=== PATIENT | female | born 1960 | race Caucasian/White ===

== ENCOUNTER 2019-01-16 13:25 | Emergency (ER) | payer OTHER ==
[2019-01-16] MEDS ORDERED: KETOROLAC 30 MG/ML 1 ML VIAL IVP STA (14:43)
[2019-01-16] MEDS ORDERED: MORPHINE SULFATE 4 MG/ML SYRINGE IV STA (14:43)
[2019-01-16] MEDS ORDERED: SODIUM CHLORIDE 0.9% 1,000 ML IV STA (14:43)
[2019-01-16] MEDS ORDERED: ONDANSETRON 4 MG/2 ML VIAL IVP STA (14:43)
[2019-01-16 15:15] LABS: Basophils % (A) 0 %; Eosinophils # (A) 0.1 k/uL (0-0.7); Eosinophils % (A) 1 %; HCT 49.4 % (34.0-46.0); HGB 15.1 gm/dL (11.4-16.0); Hypochromasia Slight; Lymphocytes # (A) 0.9 k/uL (1.0-4.8); Lymphocytes % (A) 7 %; MCH 30.3 pg (25.0-35.0); MCHC 30.6 g/dL (31.0-37.0); MCV 98.9 fL (80.0-100.0); Mean Platelet Volume 8.2; Monocytes # (A) 0.3 k/uL (0-1.0); Monocytes % (A) 2 %; Neutrophils # (A) 11.9 k/uL (1.3-7.7); Neutrophils % (A) 90 %; Platelet Count 169 k/uL (150-450); RDW 13.5 % (11.5-15.5); WBC 13.2 k/uL (3.8-10.6)
--- NOTE | 2019-01-16 15:18 | XR ---
EXAMINATION TYPE: XR KUB DATE OF EXAM: 01/16/2019 3:13 PM CLINICAL HISTORY: Left flank pain TECHNIQUE: Single upright image of the abdomen is obtained. COMPARISON: None. FINDINGS: Scattered gas is seen in nondilated small bowel loops. Gaseous distention of the cecum is n oted. Overall posterior bowel gas. Cholecystectomy clips are seen. The liver appears elongated. No pn eumoperitoneum. No suspicious calcification identified. The lung bases are clear and the osseous stru ctures are intact. IMPRESSION: Gaseous distention of the cecum is likely incidental in this patient with left lower quad rant pain. Overall nonobstructive bowel gas pattern although slight posterior bowel gas.
--- NOTE | 2019-01-16 15:31 | ED ---
General Adult HPI - General Chief complaint: Abdominal Pain Stated complaint: Possible Kidney stones Time Seen by Provider: 01/16/19 14:30 Source: patient, RN notes reviewed Mode of arrival: ambulatory Limitations: no limitations - History of Present Illness Initial comments: Patient 58-year-old female significant past mental history for kidney stones, presented to the emergency room today with chief complaint of left-sided flank pain that started this morning. Patient does admit to constant pain that is sharp at times. Patient does not increased urinary frequency with some pressure. She states the symptoms are consistent with kidney stones that she's had in the past. She denies any complaints or symptoms. Patient denies any recent fever, chills, shortness of breath, chest pain, numbness or tingling, headaches or visual changes, or any other complaints. - Related Data Home Medications Medication Instructions Recorded Confirmed Hydrochlorothiazide 12.5 mg PO DAILY 01/16/19 01/16/19 Lisinopril [Zestril] 40 mg PO DAILY 01/16/19 01/16/19 Rosuvastatin [Crestor] 10 mg PO DAILY 01/16/19 01/16/19 Previous Rx's Medication Instructions Recorded Hydrocodone/Acetaminophen [[place] 1 each PO Q6HR PRN #12 tab 01/16/19 5-325] Ibuprofen [Motrin] 800 mg PO Q6HR #30 tab 01/16/19 Ondansetron Odt [Zofran ODT] 4 mg PO Q8HR PRN #20 tab 01/16/19 Tamsulosin [Flomax] 0.4 mg PO DAILY #10 cap 01/16/19 Allergies Allergy/AdvReac Type Severity Reaction Status Date / Time Penicillins Allergy Rash/Hives Verified 01/16/19 15:57 Review of Systems ROS Statement: Those systems with pertinent positive or pertinent negative responses have been documented in the HPI. ROS Other: All systems not noted in ROS Statement are negative. Past Medical History Past Medical History: Hyperlipidemia, Hypertension History of Any Multi-Drug Resistant Organisms: None Reported Past Surgical History: Section, Cholecystectomy Past Psychological History: No Psychological Hx Reported Smoking Status: Never smoker Past Alcohol Use History: None Reported Past Drug Use History: None Reported General Exam - General Exam Comments Initial Comments: General: The patient is awake and alert, in no distress, and does not appear acutely ill. Eye: There is normal conjunctiva bilaterally. No signs of icterus. Ears, nose, mouth and throat: There are moist mucous membranes and no oral lesions. Neck: The neck is supple, there is no tenderness or JVD. Cardiovascular: There is a regular rate and rhythm. No murmur, rub or gallop is appreciated. Respiratory: Lungs are clear to auscultation, respirations are non-labored, breath sounds are equal. No wheezes, stridor, rales, or rhonchi. Gastrointestinal: Having soft on palpation. Patient does have mild tenderness left flank. No rebound, guarding Musculoskeletal: Normal ROM, no tenderness. Strength 5/5. Sensation intact. Neurological: A&O x 3. CN II-XII intact, There are no obvious motor or sensory deficits. Coordination appears grossly intact. Speech is normal. Skin: Skin is warm and dry and no rashes or lesions are noted. Psychiatric: Cooperative, appropriate mood & affect, normal judgment. Limitations: no limitations Course Vital Signs 01/16/19 13:36 Temperature 98.1 F Pulse Rate 81 Respiratory 20 Rate Blood Pressure 195/95 O2 Sat by Pulse 96 Oximetry Medical Decision Making - Medical Decision Making Patient reexamined at this time shows no signs of distress. She does admit feeling much better after pain medication of morphine, Toradol here in emergency room. Patient does admit that pain left flank has resolved. She states is consistent with kidney stones that she's had in the past. Patient's urinalysis does show hematuria. Patient did have 13,000 white count but does admit to an episode of vomiting prior to coming here return. Patient has no fever. Abdomen soft nontender. She feels couple at this time. Options of CT were discussed with patient that she has declined. She'll be treated for kidney stone short course of [place]. An opiate start talking form was completed and filled out. Patient is advised to follow-up through her urologist over the next 2 days returning here to emergency room if any symptoms increase or worsen. Will be given prescription for Zofran, ibuprofen, Flomax. - Lab Data Result diagrams: 01/16/19 15:05 01/16/19 15:05 Lab Results 01/16/19 01/16/19 01/16/19 Range/Units 15:05 15:05 15:05 WBC 13.2 H (3.8-10.6) k/uL RBC 5.00 (3.80-5.40) m/uL Hgb 15.1 (11.4-16.0) gm/dL Hct 49.4 H (34.0-46.0) % MCV 98.9 (80.0-100.0) fL MCH 30.3 (25.0-35.0) pg MCHC 30.6 L (31.0-37.0) g/dL RDW 13.5 (11.5-15.5) % Plt Count 169 (150-450) k/uL Neutrophils % 90 % Lymphocytes % 7 % Monocytes % 2 % Eosinophils % 1 % Basophils % 0 % Neutrophils # 11.9 H (1.3-7.7) k/uL Lymphocytes # 0.9 L (1.0-4.8) k/uL Monocytes # 0.3 (0-1.0) k/uL Eosinophils # 0.1 (0-0.7) k/uL Basophils # 0.0 (0-0.2) k/uL Hypochromasia Slight Sodium 141 (137-145) mmol/L Potassium 4.4 (3.5-5.1) mmol/L Chloride 108 H (98-107) mmol/L Carbon Dioxide 27 (22-30) mmol/L Anion Gap 6 mmol/L BUN 17 (7-17) mg/dL Creatinine 0.99 (0.52-1.04) mg/dL Est GFR (CKD-EPI)AfAm 73 (>60 ml/min/1.73 sqM) Est GFR (CKD-EPI)NonAf 63 (>60 ml/min/1.73 sqM) Glucose 158 H (74-99) mg/dL Calcium 10.2 (8.4-10.2) mg/dL Total Bilirubin 0.7 (0.2-1.3) mg/dL AST 62 H (14-36) U/L ALT 40 (9-52) U/L Alkaline Phosphatase 116 (38-126) U/L Total Protein 7.4 (6.3-8.2) g/dL Albumin 4.6 (3.5-5.0) g/dL Amylase 54 (30-110) U/L Lipase 177 (23-300) U/L Urine Color Light Yellow Urine Appearance Clear (Clear) Urine pH 6.0 (5.0-8.0) Ur Specific [place] 1.019 (1.001-1.035) Urine Protein Negative (Negative) Urine Glucose (UA) Negative (Negative) Urine Ketones Negative (Negative) Urine Blood Moderate H (Negative) Urine Nitrite Negative (Negative) Urine Bilirubin Negative (Negative) Urine Urobilinogen <2.0 (<2.0) mg/dL Ur Leukocyte Esterase Negative (Negative) Urine RBC 160 H (0-5) /hpf Urine WBC 6 H (0-5) /hpf Ur Squamous Epith Cells 1 (0-4) /hpf Urine Bacteria Rare H (None) /hpf Hyaline Casts 1 (0-2) /lpf Urine Mucus Rare H (None) /hpf Disposition Clinical Impression: Kidney stone Disposition: HOME SELF-CARE Condition: Good Instructions (If sedation given, give patient instructions): Kidney Stones (ED) Additional Instructions: Please use medication as discussed. Please follow-up with urologist/family doctor in the next 2 days of symptoms have not improved. Please return to emergency room if the symptoms increase or worsen or for any other concerns. Prescriptions: Tamsulosin [Flomax] 0.4 mg PO DAILY #10 cap Ibuprofen [Motrin] 800 mg PO Q6HR #30 tab Hydrocodone/Acetaminophen [[place] 5-325] 1 each PO Q6HR PRN #12 tab PRN Reason: Pain Ondansetron Odt [Zofran ODT] 4 mg PO Q8HR PRN #20 tab PRN Reason: Nausea Is patient prescribed a controlled substance at d/c from ED?: Yes When asked, does pt state using other controlled substances?: No If prescribed controlled substance>3 days was MAPS reviewed?: Prescribed <3 Days Referrals: Edilia Da Silva MD [REFERRING] - 1-2 days Bryson Reynoso MD [STAFF PHYSICIAN] - 1-2 days Time of Disposition: 16:03
[2019-01-16 15:33] LABS: Albumin 4.6 g/dL (3.5-5.0); Calcium 10.2 mg/dL (8.4-10.2); Potassium 4.4 mmol/L (3.5-5.1); Total Bilirubin 0.7 mg/dL (0.2-1.3); Total Protein 7.4 g/dL (6.3-8.2)
[2019-01-16 15:35] LABS: Appearance,Urine Clear (Clear); Bacteria,Urine Rare /hpf; Bilirubin,Urine Negative (Negative); Blood,Urine Moderate (Negative); Color,Urine Light Yellow; Glucose,Urine (UA) Negative (Negative); Hyaline Casts,Urine 1 /lpf (0-2); Ketones,Urine Negative (Negative); Leukocyte Esterase,Urine Negative (Negative); Mucus,Urine Rare /hpf; Nitrite,Urine Negative (Negative); Protein,Urine Negative (Negative); RBC,Urine 160 /hpf (0-5); Specific Gravity,Urine 1.019 (1.001-1.035); Squamous Epithelial Cell,Urine 1 /hpf (0-4); Urobilinogen,Urine <2.0 mg/dL (<2.0)
--- NOTE | 2019-01-16 15:39 | ED ---
General Adult HPI - General Chief complaint: Abdominal Pain Stated complaint: Possible Kidney stones Time Seen by Provider: 01/16/19 14:30 Source: patient Mode of arrival: ambulatory Limitations: no limitations - Related Data Allergies Allergy/AdvReac Type Severity Reaction Status Date / Time Penicillins Allergy Rash/Hives Verified 01/16/19 13:39 Review of Systems ROS Statement: Those systems with pertinent positive or pertinent negative responses have been documented in the HPI. ROS Other: All systems not noted in ROS Statement are negative. Past Medical History Past Medical History: Hyperlipidemia, Hypertension History of Any Multi-Drug Resistant Organisms: None Reported Past Surgical History: Section, Cholecystectomy Past Psychological History: No Psychological Hx Reported Smoking Status: Never smoker Past Alcohol Use History: None Reported Past Drug Use History: None Reported General Exam Limitations: no limitations Course Vital Signs 01/16/19 13:36 Temperature 98.1 F Pulse Rate 81 Respiratory 20 Rate Blood Pressure 195/95 O2 Sat by Pulse 96 Oximetry Disposition Referrals: Edilia Da Silva MD [Primary Care Provider] - 1-2 days
[2019-01-16 16:25] VITALS: BP 177/87; PULSE 99; RESP 18; TEMP 98
== END 2019-01-16 16:24 | disposition home or self-care (01) ==
LOC: EC 13:25
DX: N20.0 Calculus of kidney (principal); E78.5 Hyperlipidemia, unspecified; I10 Essential (primary) hypertension; Z79.899 Other long term (current) drug therapy; Z88.0 Allergy status to penicillin; Z90.49 Acquired absence of other specified parts of digestive tract; Z53.29 Procedure and treatment not carried out because of patient's decision for other reasons
CPT/HCPCS: 36415; 80053; 82150; 83690; 85025; 81001; 74018; 99284; 96374; 96375 ×2; 96361; J2270; J2405; J1885

== ENCOUNTER → 2019-11-02 | Outpatient (CLI) | payer OTHER ==
--- NOTE | 2019-11-02 14:32 | MM ---
Reason for exam: screening (asymptomatic). Last mammogram was performed 1 year and 10 months ago. History: Patient is postmenopausal. Physical Findings: A clinical breast exam by your physician is recommended on an annual basis and results should be correlated with mammographic findings. MG Screening Mammo w CAD Bilateral CC and MLO view(s) were taken. Prior study comparison: January 12, 2018, mammogram, performed at [facility]. September 04, 2014, mammogram, performed at [facility]. There are scattered fibroglandular densities. Benign appearing bilateral calcifications. No suspicious abnormality. No significant changes when compared with prior studies. ASSESSMENT: Benign, BI-RAD 2 RECOMMENDATION: Routine screening mammogram of both breasts in 1 year.
== END | disposition home or self-care (01) ==
LOC: RADMAMWWP 07:41
PROVIDERS: ATTEND Family Medicine
DX: Z12.31 Encounter for screening mammogram for malignant neoplasm of breast (principal)
CPT/HCPCS: 77067

== ENCOUNTER 2021-05-27 06:58 | Day surgery (SDC) | payer OTHER ==
[2021-05-26 10:00] VITALS: BMI 37.7
[~2021-05-27 06:58] MED LIST: LACTATED RINGERS 1,000 ML IV SCH
[2021-05-27 07:30] VITALS: TEMP 97.8
[2021-05-27] MEDS ORDERED: LACTATED RINGERS 1,000 ML IV ONE ×2 (07:39)
[2021-05-27 07:42] LABS: Glucose,Whole Blood 135 mg/dL (75-99)
[2021-05-27] MEDS ORDERED: PROPOFOL 10 MG/ML 20 ML VIAL IV ONE (07:47)
--- NOTE | 2021-05-27 08:07 | P.PCN ---
Date of Procedure: 05/27/21 Procedure(s) Performed: BRIEF HISTORY: Patient is a 60-year-old pleasant white female scheduled for an elective colonoscopy as a part of screening for colorectal neoplasia. PROCEDURE PERFORMED: Colonoscopy with biopsy. PREOPERATIVE DIAGNOSIS: Screening for colon cancer. IV sedation per Anesthesia. PROCEDURE: After informed consent was obtained, the patient, was brought into the endoscopy unit. IV sedation was administered by Anesthesia under continuous monitoring. Digital rectal examination was normal. Initially the Olympus CF-160 flexible video colonoscope was then inserted in the rectum, gradually advanced into the cecum without any difficulty. Careful examination was performed as the scope was gradually being withdrawn. Ileocecal valve and the appendiceal orifice were visualized and appeared normal. Prep was excellent. Mucosa of the cecum, ascending colon, was normal. In the transverse colon there was a 3 mm sessile polyp removed by cold biopsy. Rest of the transverse colon, descending colon, sigmoid colon, and rectum appeared normal. In the rectum there was another 3 mm sessile polyp removed by cold biopsy. Retroflexion was performed in the rectum and no lesions were seen. The patient tolerated the procedure well. IMPRESSION: 3 mm transverse colon polyp status post cold biopsy 3 mm rectal polyp status post cold biopsy RECOMMENDATIONS: Findings of this examination were discussed with the patient as well as a family.. She was advised to follow with the biopsy results. If the biopsy revealed adenoma she can have a repeat colonoscopy in 5 years
[2021-05-27 08:12] VITALS: RESP 16
[2021-05-27 08:26] VITALS: BP 123/79; PULSE 67
== END 2021-05-27 08:42 | disposition home or self-care (01) ==
LOC: ORWHC2ENDO 06:58
PROVIDERS: ATTEND Internal Medicine Gastroenterology
DX: Z12.11 Encounter for screening for malignant neoplasm of colon (principal); D12.3 Benign neoplasm of transverse colon; K62.1 Rectal polyp; G47.33 Obstructive sleep apnea (adult) (pediatric); E11.9 Type 2 diabetes mellitus without complications; I10 Essential (primary) hypertension; F41.9 Anxiety disorder, unspecified; E66.01 Morbid (severe) obesity due to excess calories; Z79.899 Other long term (current) drug therapy
CPT/HCPCS: 88305; 45380; J2704

== ENCOUNTER → 2021-06-08 | Outpatient (CLI) | payer OTHER ==
--- NOTE | 2021-06-08 13:47 | MM ---
Reason for exam: screening (asymptomatic). Last mammogram was performed 1 year and 7 months ago. History: Patient is postmenopausal. Took hormonal contraceptives for 8 years. Physical Findings: A clinical breast exam by your physician is recommended on an annual basis and results should be correlated with mammographic findings. MG Screening Mammo w CAD Bilateral CC and MLO view(s) were taken. Prior study comparison: November 02, 2019, bilateral MG screening mammo w CAD. January 12, 2018, mammogram, performed at [facility]. There are scattered fibroglandular densities. There are benign appearing round calcifications bilaterally. There is no discrete abnormality. ASSESSMENT: Benign, BI-RAD 2 RECOMMENDATION: Routine screening mammogram of both breasts in 1 year.
== END | disposition home or self-care (01) ==
LOC: RADMAMWWP 08:03
PROVIDERS: ATTEND Family Medicine
DX: Z12.31 Encounter for screening mammogram for malignant neoplasm of breast (principal)
CPT/HCPCS: 77067

== ENCOUNTER 2021-12-26 15:43 | Inpatient (IN) | payer OTHER ==
[2021-12-26] MEDS ORDERED: SODIUM CHLORIDE 0.9% 500 ML 500 ML IV ONE (16:16)
[2021-12-26] MEDS ORDERED: ACETAMINOPHEN TAB 500 MG TAB PO STA (16:16)
--- NOTE | 2021-12-26 16:21 | ED ---
General Adult HPI - General Chief complaint: Shortness of Breath Stated complaint: MARYJANE Time Seen by Provider: 12/26/21 16:07 Source: patient, EMS, RN notes reviewed, old records reviewed Mode of arrival: EMS Limitations: no limitations - History of Present Illness Initial comments: 61 yo female presenting for evaluation of fever, dyspnea. Patient states that the dyspnea began today. She's had fever and chills for the past several days. She thought that she had a urinary tract infection as she had increased urinary frequency. She reports that she's had some vomiting and dry heaving. She does not report a significant cough. No significant abdominal pain. - Related Data Home Medications Medication Instructions Recorded Confirmed Rosuvastatin [Crestor] 10 mg PO DAILY 01/16/19 12/26/21 Lisinopril-Hctz 20-25 mg 1 tab PO DAILY 05/26/21 12/26/21 [Zestoretic 20-25] metFORMIN HCL ER [Glucophage XR] 500 mg PO PC-SUPPER 05/26/21 12/26/21 Nitrofurantoin Monohyd/M-Cryst 100 mg PO BID 12/26/21 12/26/21 [Macrobid] Allergies Allergy/AdvReac Type Severity Reaction Status Date / Time Penicillins Allergy Rash/Hives Verified 12/26/21 18:22 Review of Systems ROS Statement: Those systems with pertinent positive or pertinent negative responses have been documented in the HPI. ROS Other: All systems not noted in ROS Statement are negative. Past Medical History Past Medical History: Diabetes Mellitus, GERD/Reflux, Hyperlipidemia, Hypertension, Osteoarthritis (OA), Pneumonia Additional Past Medical History / Comment(s): diarrhea on and off, hx IBS, History of Any Multi-Drug Resistant Organisms: None Reported Past Surgical History: Section, Cholecystectomy Past Anesthesia/Blood Transfusion Reactions: No Reported Reaction Past Psychological History: Anxiety Smoking Status: Former smoker - Past Family History Father Family Medical History: CVA/TIA, Deep Vein Thrombosis (DVT) General Exam Limitations: no limitations General appearance: alert, in distress Head exam: Present: atraumatic, normocephalic Eye exam: Present: normal appearance, PERRL ENT exam: Present: mucous membranes dry Respiratory exam: Present: decreased breath sounds. Absent: respiratory distress Cardiovascular Exam: Present: normal rhythm, tachycardia GI/Abdominal exam: Present: soft, distended. Absent: tenderness, guarding Extremities exam: Present: normal inspection, normal capillary refill. Absent: calf tenderness Neurological exam: Present: alert, oriented X3, CN II-XII intact. Absent: motor sensory deficit Skin exam: Present: warm, dry, intact. Absent: cyanosis, diaphoretic Course Vital Signs 12/26/21 12/26/21 12/26/21 15:53 16:00 17:50 Temperature 103.9 F H 99.4 F Pulse Rate 123 H 106 H Respiratory 26 H 24 20 Rate Blood Pressure 128/69 102/49 O2 Sat by Pulse 94 L 93 L Oximetry - Reevaluation(s) Reevaluation #1: 12/26/[address] chest abdomen pelvis is ordered. Reevaluation #2: 12/26/21 19:[address] Grullon covering for urology. EKG Findings - EKG Comments: EKG Findings:: Sinus tachycardia rate of 1:15, MN interval 149, QRS duration 84, QTC [address] segment elevation. Medical Decision Making - Medical Decision Making 61-year-old female presenting with fever, vomiting, dysuria. Patient is tachycardic and febrile upon arrival. She has normal white blood cell count. She has similar to what abnormalities including a potassium 2.9 which is replaced. She has acute kidney injury with a creatinine of 1.93. She has a minimal lactic acid of 2.1. Urinalysis shows significant signs of infection including many bacteria and greater than 182 red cells and white cells. Urine culture is pending as well as blood cultures. She started on IV antibiotics, 2 g of Rocephin given in the emergency department. She will be admitted for UTI with sepsis to [facility]. - Lab Data Result diagrams: 12/26/21 16:39 12/26/21 16:39 Lab Results 12/26/21 12/26/21 12/26/21 Range/Units 16:34 16:39 16:39 WBC 8.0 (3.8-10.6) k/uL RBC 4.73 (3.80-5.40) m/uL Hgb 14.2 (11.4-16.0) gm/dL Hct 45.7 (34.0-46.0) % MCV 96.5 (80.0-100.0) fL MCH 30.0 (25.0-35.0) pg MCHC 31.0 (31.0-37.0) g/dL RDW 13.4 (11.5-15.5) % Plt Count 122 L (150-450) k/uL MPV 9.9 Neutrophils % 91 % Lymphocytes % 5 % Monocytes % 2 % Eosinophils % 1 % Basophils % 1 % Neutrophils # 7.3 (1.3-7.7) k/uL Lymphocytes # 0.4 L (1.0-4.8) k/uL Monocytes # 0.2 (0-1.0) k/uL Eosinophils # 0.1 (0-0.7) k/uL Basophils # 0.0 (0-0.2) k/uL PT 10.3 (9.0-12.0) sec INR 0.9 (<1.2) APTT 21.4 L (22.0-30.0) sec Sodium (137-145) mmol/L Potassium (3.5-5.1) mmol/L Chloride (98-107) mmol/L Carbon Dioxide (22-30) mmol/L Anion Gap mmol/L BUN (7-17) mg/dL Creatinine (0.52-1.04) mg/dL Est GFR (CKD-EPI)AfAm (>60 ml/min/1.73 sqM) Est GFR (CKD-EPI)NonAf (>60 ml/min/1.73 sqM) Glucose (74-99) mg/dL Plasma Lactic Acid Michael (0.7-2.0) mmol/L Calcium (8.4-10.2) mg/dL Total Bilirubin (0.2-1.3) mg/dL AST (14-36) U/L ALT (4-34) U/L Alkaline Phosphatase (38-126) U/L Total Protein (6.3-8.2) g/dL Albumin (3.5-5.0) g/dL Urine Color Dark Brown Urine Appearance Turbid H (Clear) Urine pH 5.5 (5.0-8.0) Ur Specific [place] 1.021 (1.001-1.035) Urine Protein 3+ H (Negative) Urine Glucose (UA) Negative (Negative) Urine Ketones Negative (Negative) Urine Blood Moderate H (Negative) Urine Nitrite Negative (Negative) Urine Bilirubin Negative (Negative) Urine Urobilinogen 2.0 (<2.0) mg/dL Ur Leukocyte Esterase Large H (Negative) Urine RBC >182 H (0-5) /hpf Urine WBC >182 H (0-5) /hpf Urine WBC Clumps Many H (None) /hpf Ur Squamous Epith Cells 18 H (0-4) /hpf Urine Bacteria Many H (None) /hpf Coronavirus (PCR) (Not Detectd) 12/26/21 12/26/21 12/26/21 Range/Units 16:39 16:39 16:39 WBC (3.8-10.6) k/uL RBC (3.80-5.40) m/uL Hgb (11.4-16.0) gm/dL Hct (34.0-46.0) % MCV (80.0-100.0) fL MCH (25.0-35.0) pg MCHC (31.0-37.0) g/dL RDW (11.5-15.5) % Plt Count (150-450) k/uL MPV Neutrophils % % Lymphocytes % % Monocytes % % Eosinophils % % Basophils % % Neutrophils # (1.3-7.7) k/uL Lymphocytes # (1.0-4.8) k/uL Monocytes # (0-1.0) k/uL Eosinophils # (0-0.7) k/uL Basophils # (0-0.2) k/uL PT (9.0-12.0) sec INR (<1.2) APTT (22.0-30.0) sec Sodium 137 (137-145) mmol/L Potassium 2.9 L (3.5-5.1) mmol/L Chloride 104 (98-107) mmol/L Carbon Dioxide 24 (22-30) mmol/L Anion Gap 9 mmol/L BUN 31 H (7-17) mg/dL Creatinine 1.93 H (0.52-1.04) mg/dL Est GFR (CKD-EPI)AfAm 32 (>60 ml/min/1.73 sqM) Est GFR (CKD-EPI)NonAf 28 (>60 ml/min/1.73 sqM) Glucose 119 H (74-99) mg/dL Plasma Lactic Acid Michael 2.1 H* (0.7-2.0) mmol/L Calcium 8.3 L (8.4-10.2) mg/dL Total Bilirubin 2.9 H (0.2-1.3) mg/dL AST 54 H (14-36) U/L ALT 27 (4-34) U/L Alkaline Phosphatase 261 H (38-126) U/L Total Protein 5.6 L (6.3-8.2) g/dL Albumin 2.9 L (3.5-5.0) g/dL Urine Color Urine Appearance (Clear) Urine pH (5.0-8.0) Ur Specific [place] (1.001-1.035) Urine Protein (Negative) Urine Glucose (UA) (Negative) Urine Ketones (Negative) Urine Blood (Negative) Urine Nitrite (Negative) Urine Bilirubin (Negative) Urine Urobilinogen (<2.0) mg/dL Ur Leukocyte Esterase (Negative) Urine RBC (0-5) /hpf Urine WBC (0-5) /hpf Urine WBC Clumps (None) /hpf Ur Squamous Epith Cells (0-4) /hpf Urine Bacteria (None) /hpf Coronavirus (PCR) Not Detected (Not Detectd) Critical Care Time Critical Care Time: Yes Total Critical Care Time: 35 Disposition Clinical Impression: Sepsis secondary to UTI, Hydronephrosis with renal and ureteral calculus obstruction Disposition: ADMITTED IP TO THIS HOSP Condition: Stable Is patient prescribed a controlled substance at d/c from ED?: No Referrals: Neyda Huntley MD [Primary Care Provider] - 1-2 days Time of Disposition: 19:40 Decision to Admit Reason: Admit from EC
[2021-12-26] MEDS ORDERED: cefTRIAXone IN SWFI 1,000 MG/10 ML SYRINGE IVP STA (16:47)
[2021-12-26 17:08] LABS: Basophils % (A) 1 %; Eosinophils # (A) 0.1 k/uL (0-0.7); Eosinophils % (A) 1 %; HCT 45.7 % (34.0-46.0); HGB 14.2 gm/dL (11.4-16.0); Lymphocytes # (A) 0.4 k/uL (1.0-4.8); Lymphocytes % (A) 5 %; MCV 96.5 fL (80.0-100.0); Mean Platelet Volume 9.9; Monocytes # (A) 0.2 k/uL (0-1.0); Monocytes % (A) 2 %; Neutrophils # (A) 7.3 k/uL (1.3-7.7); Neutrophils % (A) 91 %; Platelet Count 122 k/uL (150-450); RBC 4.73 m/uL (3.80-5.40); RDW 13.4 % (11.5-15.5)
[2021-12-26 17:18] LABS: Albumin 2.9 g/dL (3.5-5.0); Calcium 8.3 mg/dL (8.4-10.2); Potassium 2.9 mmol/L (3.5-5.1); Total Bilirubin 2.9 mg/dL (0.2-1.3); Total Protein 5.6 g/dL (6.3-8.2)
[2021-12-26 17:27] LABS: Appearance,Urine Turbid (Clear); Bacteria,Urine Many /hpf; Bilirubin,Urine Negative (Negative); Blood,Urine Moderate (Negative); Color,Urine Dark Brown; Glucose,Urine (UA) Negative (Negative); Ketones,Urine Negative (Negative); Leukocyte Esterase,Urine Large (Negative); Nitrite,Urine Negative (Negative); PH, Urine 5.5 (5.0-8.0); Protein,Urine 3+ (Negative); RBC,Urine >182 /hpf (0-5); Squamous Epithelial Cell,Urine 18 /hpf (0-4); WBC,Urine >182 /hpf (0-5)
[2021-12-26 17:27] LABS: INR 0.9 (<1.2); Prothrombin Time 10.3 sec (9.0-12.0)
[2021-12-26 17:29] LABS: Specific Gravity,Urine 1.021 (1.001-1.035)
[2021-12-26 17:32] LABS: Partial Thromboplastin Time 21.4 sec (22.0-30.0)
--- NOTE | 2021-12-26 18:13 | XR ---
EXAMINATION TYPE: XR chest 2V DATE OF EXAM: 12/26/2021 COMPARISON: NONE HISTORY: Difficulty breathing TECHNIQUE: 2 views FINDINGS: There is no heart failure nor confluent pneumonic infiltrate. Costophrenic angles are clear . There are no hilar masses. There is suggestive of some widening of the mediastinum. IMPRESSION: Possible mediastinal adenopathy. Normal heart. No pulmonary consolidation or heart failur e. Recommend PA and lateral views for further evaluation.
[2021-12-26] MEDS: SODIUM CHLORIDE 0.9% 1,000 ML IV SCH (18:18)
--- NOTE | 2021-12-26 19:31 | CT ---
EXAMINATION TYPE: CT ChestAbdPelvis wo con DATE OF EXAM: 12/26/2021 COMPARISON: None HISTORY: SOB, UTI, weakness CT DLP: 2486.8 mGycm Automated exposure control for dose reduction was used. Images obtained from the thoracic inlet to the floor of the pelvis with no contrast. Heart size is normal. No mediastinal adenopathy. There are no hilar masses. Thoracic aorta appears in tact. The lungs are clear of consolidation. No evidence of a pulmonary mass. There is subsegmental mi nimal atelectasis at the lung bases. No pneumothorax. No pleural effusion. There is some fatty infiltration of the liver. Spleen is intact. The stomach is intact. There is no p ancreatic mass. There are clips from cholecystectomy. The bile ducts are not dilated. The kidneys have normal size. There is moderate left-sided hydronephrosis and perinephric edema. Ther e is left-sided mild hydroureter. There is evidence of a 4 mm calculus in the distal left ureter at t he ureteral vesicle junction. Urinary bladder is empty. Uterus is anteverted. No free fluid in the pe lvis. No evidence of a pelvic mass. There is no inguinal hernia. There is no ascites or free air. No bowel obstruction. Appendix not definitely seen. No sign of thick ened appendix. The thoracic and lumbar vertebra appear intact. No compression fracture. Bony pelvis is intact. The h ip joints are intact. There is no evidence of rib fracture. The shoulder joints are poorly visualized and appear intact. IMPRESSION: Minimal subsegmental atelectasis at the lung bases. Minimal fatty infiltration of the liver. Obstructing calculus at the left ureteral vesicle junction with left-sided hydronephrosis and hydrour eter. 2 mm calculus posterior left kidney.
[2021-12-26] MEDS ORDERED: HYDROmorphone 0.5 MG/0.5 ML SYRINGE IVP PRN (19:36)
[2021-12-26] MEDS ORDERED: NALOXONE 0.4 MG/ML 1 ML VIAL IV PRN (19:36)
[2021-12-26] MEDS ORDERED: ONDANSETRON 4 MG/2 ML VIAL IVP PRN (19:36)
[2021-12-26] MEDS: POTASSIUM CHLORIDE 10 MEQ in WATER FOR INJECTION 1 100ML.BAG IVPB SCH ×2 (19:57→23:15)
--- NOTE | 2021-12-26 20:26 | P.GSCN ---
History of Present Illness Consult date: 12/26/21 History of present illness: 61-year-old female, morbidly obese who came in the hospital with fever or shortness of breath and pain. She was evaluated in the emergency room. She had pulmonary issues eventually a CAT scan of the abdomen was obtained identifying an obstructing ureteral calculus. Her urine is infected. She had a temperature 104 on admission. Her white count was only thousand. The patient is diabetic and morbidly obese. For this reason I was asked see the patient to evaluate the sepsis stone and hydronephrosis. The patient has had a couple stones in the past. Review of Systems All systems: negative - Constitutional Denies fever, Denies weight loss - EENT Eyes: denies blurred vision Ears, nose, mouth and throat: Denies dysphagia - Cardiovascular Denies chest pain, Denies shortness of breath - Respiratory Denies cough, Denies 7 - Gastrointestinal Reports as per HPI - Genitourinary Genitourinary: Denies dysuria, Denies hematuria - Integumentary Denies rash, Denies unusual bruising - Neurological Denies headaches, Denies syncope - Hematologic/Lymphatic Denies easy bleeding, Denies easy bruising Past Medical History Past Medical History: Diabetes Mellitus, GERD/Reflux, Hyperlipidemia, Hypertension, Osteoarthritis (OA), Pneumonia Additional Past Medical History / Comment(s): diarrhea on and off, hx IBS, History of Any Multi-Drug Resistant Organisms: None Reported Past Surgical History: Section, Cholecystectomy Past Anesthesia/Blood Transfusion Reactions: No Reported Reaction Past Psychological History: Anxiety Smoking Status: Former smoker - Past Family History Father Family Medical History: CVA/TIA, Deep Vein Thrombosis (DVT) Medications and Allergies Home Medications Medication Instructions Recorded Confirmed Type Rosuvastatin [Crestor] 10 mg PO DAILY 01/16/19 12/26/21 History Lisinopril-Hctz 20-25 mg 1 tab PO DAILY 05/26/21 12/26/21 History [Zestoretic 20-25] metFORMIN HCL ER [Glucophage XR] 500 mg PO PC-SUPPER 05/26/21 12/26/21 History Nitrofurantoin Monohyd/M-Cryst 100 mg PO BID 12/26/21 12/26/21 History [Macrobid] Allergies Allergy/AdvReac Type Severity Reaction Status Date / Time Penicillins Allergy Rash/Hives Verified 12/26/21 18:22 Surgical - Exam Vital Signs Temp Pulse Resp BP Pulse Ox 103.9 F H 123 H 26 H 128/69 94 L 12/26/21 15:53 12/26/21 15:53 12/26/21 15:53 12/26/21 15:53 12/26/21 15:53 - General moderate distress, obese - Eyes PERRL - ENT no hearing loss - Neck trachea midline - Respiratory normal expansion, normal respiratory effort - Cardiovascular Rhythm: regular - Abdomen Abdomen: soft, tender - Integumentary no growths - Neurologic normal coordination, normal sensation - Musculoskeletal normal posture - Psychiatric oriented to time, oriented to person, oriented to place, speech is normal, memory intact Results - Labs 12/26/21 16:39 12/26/21 16:39 Abnormal Lab Results - Last 24 Hours (Table) 12/26/21 12/26/21 12/26/21 Range/Units 16:34 16:39 16:39 Plt Count 122 L (150-450) k/uL Lymphocytes # 0.4 L (1.0-4.8) k/uL APTT 21.4 L (22.0-30.0) sec Potassium (3.5-5.1) mmol/L BUN (7-17) mg/dL Creatinine (0.52-1.04) mg/dL Glucose (74-99) mg/dL Plasma Lactic Acid Michael (0.7-2.0) mmol/L Calcium (8.4-10.2) mg/dL Total Bilirubin (0.2-1.3) mg/dL AST (14-36) U/L Alkaline Phosphatase (38-126) U/L Total Protein (6.3-8.2) g/dL Albumin (3.5-5.0) g/dL Urine Appearance Turbid H (Clear) Urine Protein 3+ H (Negative) Urine Blood Moderate H (Negative) Ur Leukocyte Esterase Large H (Negative) Urine RBC >182 H (0-5) /hpf Urine WBC >182 H (0-5) /hpf Urine WBC Clumps Many H (None) /hpf Ur Squamous Epith Cells 18 H (0-4) /hpf Urine Bacteria Many H (None) /hpf 12/26/21 12/26/21 Range/Units 16:39 16:39 Plt Count (150-450) k/uL Lymphocytes # (1.0-4.8) k/uL APTT (22.0-30.0) sec Potassium 2.9 L (3.5-5.1) mmol/L BUN 31 H (7-17) mg/dL Creatinine 1.93 H (0.52-1.04) mg/dL Glucose 119 H (74-99) mg/dL Plasma Lactic Acid Michael 2.1 H* (0.7-2.0) mmol/L Calcium 8.3 L (8.4-10.2) mg/dL Total Bilirubin 2.9 H (0.2-1.3) mg/dL AST 54 H (14-36) U/L Alkaline Phosphatase 261 H (38-126) U/L Total Protein 5.6 L (6.3-8.2) g/dL Albumin 2.9 L (3.5-5.0) g/dL Urine Appearance (Clear) Urine Protein (Negative) Urine Blood (Negative) Ur Leukocyte Esterase (Negative) Urine RBC (0-5) /hpf Urine WBC (0-5) /hpf Urine WBC Clumps (None) /hpf Ur Squamous Epith Cells (0-4) /hpf Urine Bacteria (None) /hpf Diabetes panel 12/26/21 Range/Units 16:39 Sodium 137 (137-145) mmol/L Potassium 2.9 L (3.5-5.1) mmol/L Chloride 104 (98-107) mmol/L Carbon Dioxide 24 (22-30) mmol/L BUN 31 H (7-17) mg/dL Creatinine 1.93 H (0.52-1.04) mg/dL Glucose 119 H (74-99) mg/dL Calcium 8.3 L (8.4-10.2) mg/dL AST 54 H (14-36) U/L ALT 27 (4-34) U/L Alkaline Phosphatase 261 H (38-126) U/L Total Protein 5.6 L (6.3-8.2) g/dL Albumin 2.9 L (3.5-5.0) g/dL Calcium panel 12/26/21 Range/Units 16:39 Calcium 8.3 L (8.4-10.2) mg/dL Albumin 2.9 L (3.5-5.0) g/dL Pituitary panel 12/26/21 Range/Units 16:39 Sodium 137 (137-145) mmol/L Potassium 2.9 L (3.5-5.1) mmol/L Chloride 104 (98-107) mmol/L Carbon Dioxide 24 (22-30) mmol/L BUN 31 H (7-17) mg/dL Creatinine 1.93 H (0.52-1.04) mg/dL Glucose 119 H (74-99) mg/dL Calcium 8.3 L (8.4-10.2) mg/dL Adrenal panel 12/26/21 Range/Units 16:39 Sodium 137 (137-145) mmol/L Potassium 2.9 L (3.5-5.1) mmol/L Chloride 104 (98-107) mmol/L Carbon Dioxide 24 (22-30) mmol/L BUN 31 H (7-17) mg/dL Creatinine 1.93 H (0.52-1.04) mg/dL Glucose 119 H (74-99) mg/dL Calcium 8.3 L (8.4-10.2) mg/dL Total Bilirubin 2.9 H (0.2-1.3) mg/dL AST 54 H (14-36) U/L ALT 27 (4-34) U/L Alkaline Phosphatase 261 H (38-126) U/L Total Protein 5.6 L (6.3-8.2) g/dL Albumin 2.9 L (3.5-5.0) g/dL - Imaging CT scan - abdomen: report reviewed, image reviewed CT scan - pelvis: report reviewed, image reviewed Assessment and Plan Assessment: Impression: Urinary tract infection with sepsis, left ureteral stone with obstruction, pyelonephrosis left. Diabetes and morbid obesity. Recommendations although this patient could pass a stone as it is somewhat distal if she does not her sepsis could worsen and she could end up hemodynamically compromised. The recommendation is to place a stent aid in the treatment of the pyelonephrosis, urinary tract infection with sepsis. A later date she'll need a stone and stent removal. The patient understands. This will be done this evening.
[2021-12-26] MEDS ORDERED: PROPOFOL 10 MG/ML 20 ML VIAL IV ONE (20:28)
[2021-12-26] MEDS ORDERED: fentaNYL (PF) 50 MCG/ML 2 ML AMP ONE (20:28)
[2021-12-26] MEDS ORDERED: LACTATED RINGERS 1,000 ML IV ONE (20:28)
[2021-12-26] MEDS ORDERED: MORPHINE SULFATE (PF) 0.3 MG/0.3 ML SYR ONE (20:28)
[2021-12-26] MEDS ORDERED: MIDAZOLAM 2 MG/2 ML VIAL ONE (20:28)
--- NOTE | 2021-12-26 21:00 | P.OP ---
Date of Procedure: 12/26/21 Preoperative Diagnosis: Left ureteral calculus with obstruction, urinary tract infection with sepsis, left pyelonephrosis Postoperative Diagnosis: Same Procedure(s) Performed: Cystoscopy, left ureteroscopy with placement of double-J catheter left Anesthesia: MAC Surgeon: Hank Grullon Estimated Blood Loss (ml): 0 Pathology: none sent Condition: stable Disposition: PACU Indications for Procedure: The patient is 61. She presented emergency room with a temperature 104 shortness of breath. She was evaluated and eventually found to have significant left hydronephrosis infected urine and an obstructing stone in the bladder. The patient is diabetic and morbidly obese. Because of the medical issues the high fever the obstructing stone and infected urine she'll get a stent placement tonight Description of Procedure: Patient brought the operating suite. She is given IV sedation on the operating table. She's placed lithotomy position with sterile prep and drape. Cystoscopy Foroblique lens and 22-Khmer sheath identifies an inflamed infected looking bladder. Is a stone emanating at the left ureteral orifice. I cannot pass a wire through it. I'm able to then use a rigid ureteroscope to bump the stone up into the left ureter above the level of the bladder. I'm then able to use ureteroscope to pass the 035 wire by the stone up into the kidney. Removed the ureteroscope and over the wires passed a 6 x 24 double-J cath that coils in the left renal pelvis and the bladder. The the amount of hydronephrotic urine draining was significant. The bladder strain the patient's awake and returned recovery in good condition. She tells procedure well. She will be placed in the hospital postoperatively. In about 2 weeks we'll remove the stent and stone
[2021-12-26 21:10] LABS: Glucose,Whole Blood 117 mg/dL (75-99)
--- NOTE | 2021-12-26 21:18 | P.HPIM ---
History of Present Illness H&P Date: 12/26/21 Patient is a 61-year-old female with a PMH of type II DM, hyperlipidemia, hypertension who presents to the emergency room with complaints of fever, chills, nausea, and urinary complaints. The patient reports that her symptoms started roughly 3-4 days ago when she initially noticed a left flank pain radiating down to her groin. She reports that the pain subsided within a few hours, following which she developed mild dysuria as well as persistent chills. She reports speaking with her PCP who subsequently prescribed her nitrofurantoin 2 days ago, which she reports compliance with. She reports persistence of her symptoms however, which prompted her to come to the emergency room. She denied experiencing any pains over the past 2-3 days. Reports developing nausea with dry heaving all throughout the day today. Also reported intermittent shortness of breath, which she attributes to her nausea and dry heaves. Reports no chest discomfort or shortness of breath at the time of interview. Also denied cough. A CT chest, abdomen, and pelvis revealed an obstructing calculus of the left ure teral vesicle junction with left-sided hydronephrosis and hydroureter with a 2 mm calculus in the posterior left kidney. EKG reveals sinus tachycardia with PVCs at 115 bpm with T-wave flattening in leads V1 to V3. Laboratory evaluation revealed lactic acid 2.1, platelet count 122, K 2.9, BUN 31, Cr 1.93, and UA consistent with UTI. THe patient had a Tmax of 103.9F, pulse 123, respiratory rate 26, and SpO2 94% on 6 L nasal cannula oxygen. Review of systems: Pertinent positives and negatives as discussed in HPI, a complete review of systems was performed and all other systems are negative. Physical examination: General: non toxic, no distress, appears at stated age, obese Derm: no unusual rashes/lesions no unusual ecchymoses, warm, dry Head: atraumatic, normocephalic, symmetric Eyes: EOMI, no lid lag, anicteric sclera, pupils equal round reactive to light ENT: Nose and ears atraumatic, no thrush, no pharyngeal erythema Neck: No thyromegaly, no cervical lymphadenopathy, trachea midline, supple Mouth: no lip lesion, mucus membranes moist Cardiovascular: S1S2 reg, no murmur, positive posterior tibial pulse bilateral, no edema, capillary refill less than 2 seconds Lungs: CTA bilateral, no rhonchi, no rales , no accessory muscle use Abdominal: soft, no CVA tenderness, nontender to palpation, no guarding, no appreciable organomegaly, normal bowel sounds Ext: no gross muscle atrophy, muscle strength 5 out of 5 in all 4 extremities grossly, no contractures, Neuro: CN II-XI grossly intact, light touch intact all 4 extremities, finger to nose within normal limits, Psych: Alert, oriented, appropriate affect Assessment/plan UTI sepsis in setting of left-sided renal calculus -Neurology consulted -Continue ceftriaxone -IV fluids -Pain control -Follow cultures Lactic acidosis, secondary to above -Monitor for resolution -IV fluids Acute kidney injury, suspected secondary to renal calculus -IV fluids -Monitor BMP Chronic conditions: Hypertension, hyperlipidemia, type II DM -Continue home meds -Insulin sliding scale and blood glucose monitoring -Check A1c DVT prophylaxis -Heparin subcu The patient is admitted with an anticipated greate than 2 midnight stay for eval uation of UTI sepsis CODE STATUS: Full code Discussed with: Patient Anticipated discharge date: 12/[address]: Home Past Medical History Past Medical History: Diabetes Mellitus, GERD/Reflux, Hyperlipidemia, Hypertension, Osteoarthritis (OA), Pneumonia Additional Past Medical History / Comment(s): diarrhea on and off, hx IBS, History of Any Multi-Drug Resistant Organisms: None Reported Past Surgical History: Section, Cholecystectomy Past Anesthesia/Blood Transfusion Reactions: No Reported Reaction Past Psychological History: Anxiety Smoking Status: Former smoker - Past Family History Father Family Medical History: CVA/TIA, Deep Vein Thrombosis (DVT) Mother Family Medical History: Dementia, Diabetes Mellitus Medications and Allergies Home Medications Medication Instructions Recorded Confirmed Type Rosuvastatin [Crestor] 10 mg PO DAILY 01/16/19 12/26/21 History Lisinopril-Hctz 20-25 mg 1 tab PO DAILY 05/26/21 12/26/21 History [Zestoretic 20-25] metFORMIN HCL ER [Glucophage XR] 500 mg PO PC-SUPPER 05/26/21 12/26/21 History Nitrofurantoin Monohyd/M-Cryst 100 mg PO BID 12/26/21 12/26/21 History [Macrobid] Allergies Allergy/AdvReac Type Severity Reaction Status Date / Time Penicillins Allergy Rash/Hives Verified 12/26/21 18:22 Physical Exam Vitals: Vital Signs Temp Pulse Resp BP Pulse Ox 12/26/21 17:50 99.4 F 106 H 20 102/49 93 L 12/26/21 16:00 24 12/26/21 15:53 103.9 F H 123 H 26 H 128/69 94 L Intake and Output 12/26/21 12/26/21 12/26/21 06:59 14:59 22:59 Other: Weight 145.15 kg Results CBC & Chem 7: 12/26/21 16:39 12/26/21 16:39 Labs: Abnormal Lab Results - Last 24 Hours (Table) 12/26/21 12/26/21 12/26/21 Range/Units 16:34 16:39 16:39 Plt Count 122 L (150-450) k/uL Lymphocytes # 0.4 L (1.0-4.8) k/uL APTT 21.4 L (22.0-30.0) sec Potassium (3.5-5.1) mmol/L BUN (7-17) mg/dL Creatinine (0.52-1.04) mg/dL Glucose (74-99) mg/dL Plasma Lactic Acid Michael (0.7-2.0) mmol/L Calcium (8.4-10.2) mg/dL Total Bilirubin (0.2-1.3) mg/dL AST (14-36) U/L Alkaline Phosphatase (38-126) U/L Total Protein (6.3-8.2) g/dL Albumin (3.5-5.0) g/dL Urine Appearance Turbid H (Clear) Urine Protein 3+ H (Negative) Urine Blood Moderate H (Negative) Ur Leukocyte Esterase Large H (Negative) Urine RBC >182 H (0-5) /hpf Urine WBC >182 H (0-5) /hpf Urine WBC Clumps Many H (None) /hpf Ur Squamous Epith Cells 18 H (0-4) /hpf Urine Bacteria Many H (None) /hpf 12/26/21 12/26/21 Range/Units 16:39 16:39 Plt Count (150-450) k/uL Lymphocytes # (1.0-4.8) k/uL APTT (22.0-30.0) sec Potassium 2.9 L (3.5-5.1) mmol/L BUN 31 H (7-17) mg/dL Creatinine 1.93 H (0.52-1.04) mg/dL Glucose 119 H (74-99) mg/dL Plasma Lactic Acid Michael 2.1 H* (0.7-2.0) mmol/L Calcium 8.3 L (8.4-10.2) mg/dL Total Bilirubin 2.9 H (0.2-1.3) mg/dL AST 54 H (14-36) U/L Alkaline Phosphatase 261 H (38-126) U/L Total Protein 5.6 L (6.3-8.2) g/dL Albumin 2.9 L (3.5-5.0) g/dL Urine Appearance (Clear) Urine Protein (Negative) Urine Blood (Negative) Ur Leukocyte Esterase (Negative) Urine RBC (0-5) /hpf Urine WBC (0-5) /hpf Urine WBC Clumps (None) /hpf Ur Squamous Epith Cells (0-4) /hpf Urine Bacteria (None) /hpf
[2021-12-26] MEDS: HEPARIN SODIUM,PORCINE/PF 5,000 UNIT/0.5 ML SYRINGE SQ SCH (23:14)
[2021-12-27] MEDS: POTASSIUM CHLORIDE 10 MEQ in WATER FOR INJECTION 1 100ML.BAG IVPB SCH ×2 (00:20→01:26)
[2021-12-27] MEDS: SODIUM CHLORIDE 0.9% 1,000 ML IV SCH ×3 (01:41→21:09)
[2021-12-27] MEDS: INSULIN ASPART (NovoLOG) 100 UNIT/ML VIAL SQ SCH ×4 (06:33→21:09)
[2021-12-27 06:37] LABS: Glucose,Whole Blood 105 mg/dL (75-99)
--- NOTE | 2021-12-27 07:24 | FL ---
Intraoperative fluoroscopic services were provided for left ureteral stent. Total fluoroscopy time is 23.9 seconds with a total of 1 submitted images to PACS. Please see the operative note for further d etails.
[2021-12-27 09:04] LABS: Basophils % (A) 0 %; Eosinophils # (A) 0.1 k/uL (0-0.7); Eosinophils % (A) 1 %; HCT 38.5 % (34.0-46.0); HGB 11.8 gm/dL (11.4-16.0); Hypochromasia Slight; Lymphocytes # (A) 1.5 k/uL (1.0-4.8); Lymphocytes % (A) 14 %; MCH 30.6 pg (25.0-35.0); MCHC 30.7 g/dL (31.0-37.0); MCV 99.5 fL (80.0-100.0); Mean Platelet Volume 10.3; Monocytes # (A) 0.7 k/uL (0-1.0); Monocytes % (A) 6 %; Neutrophils # (A) 8.5 k/uL (1.3-7.7); Neutrophils % (A) 76 %; Platelet Count 129 k/uL (150-450); RBC 3.87 m/uL (3.80-5.40); RDW 13.6 % (11.5-15.5); WBC 11.2 k/uL (3.8-10.6)
[2021-12-27 09:16] LABS: Albumin 2.6 g/dL (3.5-5.0); Calcium 7.7 mg/dL (8.4-10.2); Potassium 3.3 mmol/L (3.5-5.1); Total Bilirubin 1.7 mg/dL (0.2-1.3); Total Protein 5.3 g/dL (6.3-8.2)
[2021-12-27] MEDS: ACETAMINOPHEN TAB 325 MG TAB PO PRN ×2 (09:21→18:04)
[2021-12-27] MEDS: ATORVASTATIN 20 MG TAB PO SCH (09:21)
[2021-12-27] MEDS: HEPARIN SODIUM,PORCINE/PF 5,000 UNIT/0.5 ML SYRINGE SQ SCH ×2 (09:21→18:05)
[2021-12-27] MEDS ORDERED: POTASSIUM CHLORIDE ER 20 MEQ TAB.ER PO STA (09:53)
--- NOTE | 2021-12-27 10:39 | P.PN ---
Subjective Progress Note Date: 12/27/21 The patient is in the hospital with a urinary tract infection with sepsis, left ureteral obstruction due to stone with left pyelonephrosis. She had an emergency stent placement last night. She is feeling better other than stent discomfort to. I again discussed with the patient and her the situa tion. In the couple of weeks she'll need stent and stone removal from the left side. Objective - Vital Signs Vital signs: Vital Signs Temp 98.2 F 12/27/21 04:00 Pulse 76 12/27/21 04:00 Resp 17 12/27/21 04:00 BP 102/67 12/27/21 04:00 Pulse Ox 93 L 12/27/21 04:00 Intake & Output 12/26/21 12/27/21 12/27/21 18:59 06:59 18:59 Intake Total 2040 180 Output Total 0 Balance 2040 180 Weight 145.15 kg 146.5 kg Intake: IV 1000 Intake, IV Titration 1040 Amount Sodium Chloride 0.9% 1, 1040 000 ml @ 130 mls/hr IV . [id number] [facility] Rx#:[id number] Oral 180 Output: Estimated Blood Loss 0 Other: Voiding Method Toilet # Voids 3 - Labs CBC & Chem 7: 12/27/21 08:22 12/27/21 08:22 Labs: Abnormal Lab Results - Last 24 Hours (Table) 12/26/21 12/26/21 12/26/21 Range/Units 16:34 16:39 16:39 WBC (3.8-10.6) k/uL MCHC (31.0-37.0) g/dL Plt Count 122 L (150-450) k/uL Neutrophils # (1.3-7.7) k/uL Lymphocytes # 0.4 L (1.0-4.8) k/uL APTT 21.4 L (22.0-30.0) sec Potassium (3.5-5.1) mmol/L BUN (7-17) mg/dL Creatinine (0.52-1.04) mg/dL Glucose (74-99) mg/dL POC Glucose (mg/dL) (75-99) mg/dL Plasma Lactic Acid Michael (0.7-2.0) mmol/L Calcium (8.4-10.2) mg/dL Total Bilirubin (0.2-1.3) mg/dL AST (14-36) U/L Alkaline Phosphatase (38-126) U/L Total Protein (6.3-8.2) g/dL Albumin (3.5-5.0) g/dL Urine Appearance Turbid H (Clear) Urine Protein 3+ H (Negative) Urine Blood Moderate H (Negative) Ur Leukocyte Esterase Large H (Negative) Urine RBC >182 H (0-5) /hpf Urine WBC >182 H (0-5) /hpf Urine WBC Clumps Many H (None) /hpf Ur Squamous Epith Cells 18 H (0-4) /hpf Urine Bacteria Many H (None) /hpf 12/26/21 12/26/21 12/26/21 Range/Units 16:39 16:39 21:08 WBC (3.8-10.6) k/uL MCHC (31.0-37.0) g/dL Plt Count (150-450) k/uL Neutrophils # (1.3-7.7) k/uL Lymphocytes # (1.0-4.8) k/uL APTT (22.0-30.0) sec Potassium 2.9 L (3.5-5.1) mmol/L BUN 31 H (7-17) mg/dL Creatinine 1.93 H (0.52-1.04) mg/dL Glucose 119 H (74-99) mg/dL POC Glucose (mg/dL) 117 H (75-99) mg/dL Plasma Lactic Acid Michael 2.1 H* (0.7-2.0) mmol/L Calcium 8.3 L (8.4-10.2) mg/dL Total Bilirubin 2.9 H (0.2-1.3) mg/dL AST 54 H (14-36) U/L Alkaline Phosphatase 261 H (38-126) U/L Total Protein 5.6 L (6.3-8.2) g/dL Albumin 2.9 L (3.5-5.0) g/dL Urine Appearance (Clear) Urine Protein (Negative) Urine Blood (Negative) Ur Leukocyte Esterase (Negative) Urine RBC (0-5) /hpf Urine WBC (0-5) /hpf Urine WBC Clumps (None) /hpf Ur Squamous Epith Cells (0-4) /hpf Urine Bacteria (None) /hpf 04/24/22 04/24/22 04/24/22 Range/Units 06:30 08:22 08:22 WBC 11.2 H (3.8-10.6) k/uL MCHC 30.7 L (31.0-37.0) g/dL Plt Count 129 L (150-450) k/uL Neutrophils # 8.5 H (1.3-7.7) k/uL Lymphocytes # (1.0-4.8) k/uL APTT (22.0-30.0) sec Potassium 3.3 L (3.5-5.1) mmol/L BUN 39 H (7-17) mg/dL Creatinine 2.97 H (0.52-1.04) mg/dL Glucose 106 H (74-99) mg/dL POC Glucose (mg/dL) 105 H (75-99) mg/dL Plasma Lactic Acid Michael (0.7-2.0) mmol/L Calcium 7.7 L (8.4-10.2) mg/dL Total Bilirubin 1.7 H (0.2-1.3) mg/dL AST 66 H (14-36) U/L Alkaline Phosphatase 164 H (38-126) U/L Total Protein 5.3 L (6.3-8.2) g/dL Albumin 2.6 L (3.5-5.0) g/dL Urine Appearance (Clear) Urine Protein (Negative) Urine Blood (Negative) Ur Leukocyte Esterase (Negative) Urine RBC (0-5) /hpf Urine WBC (0-5) /hpf Urine WBC Clumps (None) /hpf Ur Squamous Epith Cells (0-4) /hpf Urine Bacteria (None) /hpf Microbiology - Last 24 Hours (Table) 12/26/21 16:34 Urine Culture - Preliminary Urine,Clean Catch
[2021-12-27 11:49] LABS: Glucose,Whole Blood 104 mg/dL (75-99)
--- NOTE | 2021-12-27 12:13 | P.PN ---
Subjective Progress Note Date: 12/27/21 Principal diagnosis: Sepsis Feeling better today, no fevers. States that urinary symptoms are currently improved. No significant pain. No n/v. Objective - Vital Signs Vital signs: Vital Signs Temp 99.2 F 12/27/21 08:00 Pulse 85 12/27/21 08:00 Resp 18 12/27/21 08:00 BP 122/70 12/27/21 08:00 Pulse Ox 93 L 12/27/21 08:00 Intake & Output 12/26/21 12/27/21 12/27/21 18:59 06:59 18:59 Intake Total 2039 180 Output Total 0 Balance 2039 180 Weight 145.15 kg 146.5 kg Intake: IV 1000 Intake, IV Titration 1040 Amount Sodium Chloride 0.9% 1, 1040 000 ml @ 130 mls/hr IV . Q7H42M [facility] Rx#:[id number] Oral 180 Output: Estimated Blood Loss 0 Other: Voiding Method Toilet Toilet # Voids 3 - Exam Constitutional: No acute distress, conversant, pleasant Eyes:Anicteric sclerae, moist conjunctiva, no lid-lag, PERRLA, ENMT: Oropharynx clear, no erythema, exudates Neck: Supple, FROM, no masses, or JVD, No carotid bruits, No thyromegaly Lungs: Clear to auscultation, Clear to percussion, Normal respiratory effort, no accessory muscle use Cardiovascular: Heart regular in rate and rhythm, No murmurs, gallops, or rubs, No peripheral edema Abdominal: Soft, Nontender, no guarding, rebound or rigidity, Normoactive bowel sounds, No hepatomegaly, No splenomegaly, No palpable mass Skin: Normal temperature, tone, texture, turgor, no induration, No subcutaneous nodules, No rash, lesions, No ulcers Extremities: No digital cyanosis, No clubbing, Pedal pulses intact and sy mmetrical, Radial pulses intact and symmetrical, No calf tenderness Psychiatric: Alert and oriented to person, place and time, appropriate affect, intact judgement Neuro: Muscles Strength 5/5 in all 4 extremities, Sensation to light touch grossly present throughout, Cranial nerves II-XII grossly intact, no focal sensory deficits - Labs CBC & Chem 7: 12/27/21 08:22 12/27/21 08:22 Labs: Abnormal Lab Results - Last 24 Hours (Table) 12/26/21 12/26/21 12/26/21 Range/Units 16:34 16:39 16:39 WBC (3.8-10.6) k/uL MCHC (31.0-37.0) g/dL Plt Count 122 L (150-450) k/uL Neutrophils # (1.3-7.7) k/uL Lymphocytes # 0.4 L (1.0-4.8) k/uL APTT 21.4 L (22.0-30.0) sec Potassium (3.5-5.1) mmol/L BUN (7-17) mg/dL Creatinine (0.52-1.04) mg/dL Glucose (74-99) mg/dL POC Glucose (mg/dL) (75-99) mg/dL Plasma Lactic Acid Michael (0.7-2.0) mmol/L Calcium (8.4-10.2) mg/dL Total Bilirubin (0.2-1.3) mg/dL AST (14-36) U/L Alkaline Phosphatase (38-126) U/L Total Protein (6.3-8.2) g/dL Albumin (3.5-5.0) g/dL Urine Appearance Turbid H (Clear) Urine Protein 3+ H (Negative) Urine Blood Moderate H (Negative) Ur Leukocyte Esterase Large H (Negative) Urine RBC >182 H (0-5) /hpf Urine WBC >182 H (0-5) /hpf Urine WBC Clumps Many H (None) /hpf Ur Squamous Epith Cells 18 H (0-4) /hpf Urine Bacteria Many H (None) /hpf 12/26/21 12/26/21 12/26/21 Range/Units 16:39 16:39 21:08 WBC (3.8-10.6) k/uL MCHC (31.0-37.0) g/dL Plt Count (150-450) k/uL Neutrophils # (1.3-7.7) k/uL Lymphocytes # (1.0-4.8) k/uL APTT (22.0-30.0) sec Potassium 2.9 L (3.5-5.1) mmol/L BUN 31 H (7-17) mg/dL Creatinine 1.93 H (0.52-1.04) mg/dL Glucose 119 H (74-99) mg/dL POC Glucose (mg/dL) 117 H (75-99) mg/dL Plasma Lactic Acid Michael 2.1 H* (0.7-2.0) mmol/L Calcium 8.3 L (8.4-10.2) mg/dL Total Bilirubin 2.9 H (0.2-1.3) mg/dL AST 54 H (14-36) U/L Alkaline Phosphatase 261 H (38-126) U/L Total Protein 5.6 L (6.3-8.2) g/dL Albumin 2.9 L (3.5-5.0) g/dL Urine Appearance (Clear) Urine Protein (Negative) Urine Blood (Negative) Ur Leukocyte Esterase (Negative) Urine RBC (0-5) /hpf Urine WBC (0-5) /hpf Urine WBC Clumps (None) /hpf Ur Squamous Epith Cells (0-4) /hpf Urine Bacteria (None) /hpf 12/27/21 12/27/21 12/27/21 Range/Units 06:30 08:22 08:22 WBC 11.2 H (3.8-10.6) k/uL MCHC 30.7 L (31.0-37.0) g/dL Plt Count 129 L (150-450) k/uL Neutrophils # 8.5 H (1.3-7.7) k/uL Lymphocytes # (1.0-4.8) k/uL APTT (22.0-30.0) sec Potassium 3.3 L (3.5-5.1) mmol/L BUN 39 H (7-17) mg/dL Creatinine 2.97 H (0.52-1.04) mg/dL Glucose 106 H (74-99) mg/dL POC Glucose (mg/dL) 105 H (75-99) mg/dL Plasma Lactic Acid Michael (0.7-2.0) mmol/L Calcium 7.7 L (8.4-10.2) mg/dL Total Bilirubin 1.7 H (0.2-1.3) mg/dL AST 66 H (14-36) U/L Alkaline Phosphatase 164 H (38-126) U/L Total Protein 5.3 L (6.3-8.2) g/dL Albumin 2.6 L (3.5-5.0) g/dL Urine Appearance (Clear) Urine Protein (Negative) Urine Blood (Negative) Ur Leukocyte Esterase (Negative) Urine RBC (0-5) /hpf Urine WBC (0-5) /hpf Urine WBC Clumps (None) /hpf Ur Squamous Epith Cells (0-4) /hpf Urine Bacteria (None) /hpf 12/27/21 Range/Units 11:48 WBC (3.8-10.6) k/uL MCHC (31.0-37.0) g/dL Plt Count (150-450) k/uL Neutrophils # (1.3-7.7) k/uL Lymphocytes # (1.0-4.8) k/uL APTT (22.0-30.0) sec Potassium (3.5-5.1) mmol/L BUN (7-17) mg/dL Creatinine (0.52-1.04) mg/dL Glucose (74-99) mg/dL POC Glucose (mg/dL) 104 H (75-99) mg/dL Plasma Lactic Acid Michael (0.7-2.0) mmol/L Calcium (8.4-10.2) mg/dL Total Bilirubin (0.2-1.3) mg/dL AST (14-36) U/L Alkaline Phosphatase (38-126) U/L Total Protein (6.3-8.2) g/dL Albumin (3.5-5.0) g/dL Urine Appearance (Clear) Urine Protein (Negative) Urine Blood (Negative) Ur Leukocyte Esterase (Negative) Urine RBC (0-5) /hpf Urine WBC (0-5) /hpf Urine WBC Clumps (None) /hpf Ur Squamous Epith Cells (0-4) /hpf Urine Bacteria (None) /hpf Microbiology - Last 24 Hours (Table) 12/26/21 16:39 Blood Culture - Final Blood 12/26/21 16:34 Urine Culture - Preliminary Urine,Clean Catch Assessment and Plan Plan: UTI sepsis in setting of left-sided renal calculus Gram negative bacteremia -Urology consulted--s/p ureteral stent placement -Continue ceftriaxone -IV fluids -Pain control -Follow cultures -Encouraged to keep herself hydrated. Lactic acidosis, secondary to above -Resolved. Acute kidney injury, suspected secondary to renal calculus -Worse today, continue IV fluids -Monitor BMP Chronic conditions: Hypertension, hyperlipidemia, type II DM -Hold bp and Dm meds -Insulin sliding scale and blood glucose monitoring -Check A1c DVT prophylaxis -Heparin subcu CODE STATUS: Full code Discussed with: Patient Anticipated discharge date: 12/[address]: Home
[2021-12-27 16:56] LABS: Glucose,Whole Blood 115 mg/dL (75-99)
[2021-12-28] MEDS: HEPARIN SODIUM,PORCINE/PF 5,000 UNIT/0.5 ML SYRINGE SQ SCH ×4 (00:40→23:32)
[2021-12-28] MEDS: SODIUM CHLORIDE 0.9% 1,000 ML IV SCH ×4 (00:41→23:32)
[2021-12-28] MEDS: ACETAMINOPHEN TAB 325 MG TAB PO PRN (01:31)
[2021-12-28] MEDS ORDERED: HEPARIN SODIUM,PORCINE 5,000 UNIT/ML 1 ML VIAL ONE (09:00)
[2021-12-28] MEDS ORDERED: ATORVASTATIN 20 MG TAB ONE (09:00)
[2021-12-28 10:46] LABS: Potassium 3.6 mmol/L (3.5-5.1)
[2021-12-28 10:47] LABS: Glucose,Whole Blood 93 mg/dL (75-99)
[2021-12-28 10:47] LABS: Calcium 8.1 mg/dL (8.4-10.2); Magnesium 2.4 mg/dL (1.6-2.3)
[2021-12-28 11:09] LABS: Basophils # (A) 0.1 k/uL (0-0.2); Basophils % (A) 1 %; Eosinophils # (A) 0.3 k/uL (0-0.7); Eosinophils % (A) 3 %; HCT 38.7 % (34.0-46.0); HGB 12.1 gm/dL (11.4-16.0); Hypochromasia Slight; Lymphocytes # (A) 1.7 k/uL (1.0-4.8); Lymphocytes % (A) 14 %; MCHC 31.2 g/dL (31.0-37.0); MCV 99.4 fL (80.0-100.0); Mean Platelet Volume 10.1; Monocytes # (A) 0.8 k/uL (0-1.0); Monocytes % (A) 7 %; Neutrophils # (A) 8.6 k/uL (1.3-7.7); Neutrophils % (A) 72 %; Platelet Count 127 k/uL (150-450); RBC 3.89 m/uL (3.80-5.40); RDW 13.8 % (11.5-15.5); WBC 11.9 k/uL (3.8-10.6)
[2021-12-28 11:44] LABS: Glucose,Whole Blood 110 mg/dL (75-99)
--- NOTE | 2021-12-28 13:43 | P.PN ---
Subjective Progress Note Date: 12/28/21 Hospital course: Patient is a very pleasant 61-year-old female with a past medical history of hypertension, hyperlipidemia, type II [id number] diabetes mellitus, and renal calculi. She presented to the emergency department on 12/26/21 with a chief complaint of fever, chills, nausea, and urinary complaints including urinary retention, frequency, dysuria, and left flank pain radiating into groin. These symptoms started 2 days prior to coming to the emergency department and patient reports that she notified her PCP who prescribed her nitrofurantoin, however secondary to persistence and slightly worsening of urinary symptoms (significant retention and dribbling) she came to the emergency department to be evaluated. In the emergency department patient underwent full evaluation. CT revealed an obstructing calculus at the left ureteral vesicular junction with left-sided hydronephrosis and hydroureter. Lab findings positive for UTI and acute kidney injury. Patient was admitted under our services with consultation to urology. Patient underwent cystoscopy with stent placement on 12/26/21. Urine cultures positive for gram-negative bacilli . Blood cultures also revealing preliminary results of being positive positive for gram-negative ba cilli, E. coli. Patient remains on IV antibiotics with Rocephin 2 g every 24 hours. Renal functioning is worsening with a.m. labs. Patient reports she has not received IV hydration in 24 hours secondary to poor IV access. Order placed for midline at this time and patient to undergo vigorous IV hydration. If no improvement in renal function, nephrology will be consulted. Physical exam: Patient was seen and fully evaluated at bedside this morning. Patient reports she feels much better today than yesterday and urinary symptoms have significantly improved. Patient reports urinary retention and dysuria have resolved and states that she overall feels better. Morning labs reveal worsening renal function, however patient and RN reports patient has not had sufficient IV access over the past 24 hours secondary to repeated failing IVs and patient being a difficult lab draw. Orders placed for midline at this time and RN was informed of utmost importance of vigorous IV hydration secondary to worsening renal function and need for strict I's and O's, nephrology also consulted for evaluation. Blood cultures preliminarily resulting positive for gram negatives bacilli, E. coli. Patient remains on IV antibiotics with Rocephin and infectious disease consulted. Vital signs reviewed and stable. General: Nontoxic, no distress and appears stated age. Derm: Skin warm and dry, normal coloration for ethnicity. Head: Atraumatic, normocephalic and symmetric. Eyes: EOMs intact, no lid lag, and anicteric sclera Mouth: no lip lesions, mucus membranes moist Cardiovascular: regular rate and rhythm with normal S1S2, no murmur, positive posterior tibial pulses bilaterally, and cap refill < 2 seconds. Lungs: Respirations even, regular, and unlabored on room air. Lungs CTA bilaterally, no rhonchi, no rales, no wheezing, and no accessory muscle usage. Abdominal: soft, nontender to palpation, no guarding, no appreciable organomegaly Ext: ROM intact. No gross muscle atrophy, no edema, no contractures Neuro: Speech clear, face symmetrical and CN II-XII grossly intact with no noted focal neuro deficits Psych: Alert and oriented to person, place, time, and situation. Appropriate and pleasant affect. Assessment and Plan of Care: Acute obstructive renal calculus with left-sided hydronephrosis and hydroureter UTI, preliminary culture results gram-negative bacilli E. coli bacteremia, preliminary blood culture results positive for gram-negative bacilli/E. coli Sepsis secondary to above Acute kidney injury Lactic acidosis -Urology following, patient underwent cystoscopy with stent placement 12/26/21. -Continue IV antibiotic Rocephin 2 g every 24 hours. -Continue Vigorous hydration with IV fluids and strict monitoring of I's and O's. -Nephrology consulted secondary to worsening renal function -Follow up with blood culture once final culture and sensitivity report is available. -Follow up with urine culture once final culture and sensitivity report is available. [id number] diabetes mellitus type 2 -Hold Glucophage in place patient on glycemic protocol with NovoLog sliding scale. Hypertension -Hold lisinopril secondary to [facility], vital signs stable. Hyperlipidemia -Continue daily medication management with atorvastatin 20 mg daily. CODE STATUS: Full code DVT prophylaxis: Heparin Discussed with: Patient and RN Anticipated discharge date: Clinical course to determine Anticipated discharge place: Home A total of 41 minutes was spent on the care of this complex patient more than 50% of the time was spent in counseling and care coordination. I reviewed the documentation as provided by the GERSON above, who is the original author of this note. I agree with the documented assessment and plan, with the following changes: None Objective - Vital Signs Vital signs: Vital Signs Temp 98.2 F 04/25/22 08:00 Pulse 78 12/28/21 08:00 Resp 17 12/28/21 08:00 BP 107/59 12/28/21 08:00 Pulse Ox 91 L 12/28/21 08:00 Intake & Output 12/27/21 12/28/21 12/28/21 18:59 06:59 18:59 Intake Total 180 120 Balance 180 120 Intake: Oral 180 120 Other: Voiding Method Toilet Toilet # Voids 2 3 - Labs CBC & Chem 7: 12/28/21 09:18 12/28/21 09:18 Labs: Abnormal Lab Results - Last 24 Hours (Table) 12/27/21 12/28/21 12/28/21 Range/Units 16:55 09:18 09:18 WBC 11.9 H (3.8-10.6) k/uL Plt Count 127 L (150-450) k/uL Neutrophils # 8.6 H (1.3-7.7) k/uL Sodium 135 L (137-145) mmol/L BUN 54 H (7-17) mg/dL Creatinine 3.76 H (0.52-1.04) mg/dL Glucose 137 H (74-99) mg/dL POC Glucose (mg/dL) 115 H (75-99) mg/dL Calcium 8.1 L (8.4-10.2) mg/dL Magnesium 2.4 H (1.6-2.3) mg/dL 12/28/21 Range/Units 11:43 WBC (3.8-10.6) k/uL Plt Count (150-450) k/uL Neutrophils # (1.3-7.7) k/uL Sodium (137-145) mmol/L BUN (7-17) mg/dL Creatinine (0.52-1.04) mg/dL Glucose (74-99) mg/dL POC Glucose (mg/dL) 110 H (75-99) mg/dL Calcium (8.4-10.2) mg/dL Magnesium (1.6-2.3) mg/dL Microbiology - Last 24 Hours (Table) 12/26/21 16:39 Blood Culture Gram Stain - Preliminary Blood Blood Culture - Preliminary Gram Neg Bacilli 12/26/21 16:34 Urine Culture - Preliminary Urine,Clean Catch Gram Neg Bacilli 12/26/21 16:39 Blood Culture Gram Stain - Preliminary Blood Blood Culture - Preliminary Escherichia coli 12/26/21 16:39 Blood Culture - Final Blood 12/26/21 16:39 Blood Culture - Final Blood
--- NOTE | 2021-12-28 15:48 | P.NPCON ---
History of Present Illness - Reason for Consult acute renal failure - History of Present Illness Reason for consultation: Acute kidney injury History of present illness: Patient is a 61-year-old female seen in renal consultation for acute kidney injury. Patient's baseline creatinine is near 1 and was elevated at 1.93 on admission on 12/26/2021. Today it is up to 3.76. Patient presented with generalized weakness and chills over the weekend and came to the hospital. Patient states she was having symptoms of UTI and was started on an antibiotic outpatient. However when she developed chills and next day she came to the hospital. Patient's blood cultures positive for E. coli urine culture is posi tive for gram-negative bacilli. CAT scan on admission showed an obstructing ureteral calculus on the left side for which she underwent ureteral stent placement on 12/26/2021. She has been waiting. She denies any gross hematuria. She admits to occasional nonsteroidal use. She does have history of diabetes and is maintained on metformin. She was also on lisinopril thiazide diuretic which are currently held. She is receiving normal saline at 75 mL an hour. She denies any family history of renal disease. Patient's blood pressure this admission was as low as 86/53 and most recent blood pressure was 111/66. Vital signs are stable. General: Awake and alert. No acute distress. HEENT: Head exam is unremarkable. LUNGS: Breath sounds decreased. HEART: Rate and Rhythm are regular. ABDOMEN: Soft, obese. EXTREMITITES: 1+ edema. Past Medical History Past Medical History: Diabetes Mellitus, GERD/Reflux, Hyperlipidemia, Hypertension, Osteoarthritis (OA), Pneumonia Additional Past Medical History / Comment(s): diarrhea on and off, hx IBS, History of Any Multi-Drug Resistant Organisms: None Reported Past Surgical History: Section, Cholecystectomy Past Anesthesia/Blood Transfusion Reactions: No Reported Reaction Past Psychological History: Anxiety Smoking Status: Former smoker - Past Family History Father Family Medical History: CVA/TIA, Deep Vein Thrombosis (DVT) Mother Family Medical History: Dementia, Diabetes Mellitus Medications and Allergies Home Medications Medication Instructions Recorded Confirmed Type Rosuvastatin [Crestor] 10 mg PO DAILY 01/16/19 12/26/21 History Lisinopril-Hctz 20-25 mg 1 tab PO DAILY 05/26/21 12/26/21 History [Zestoretic 20-25] metFORMIN HCL ER [Glucophage XR] 500 mg PO PC-SUPPER 05/26/21 12/26/21 History Nitrofurantoin Monohyd/M-Cryst 100 mg PO BID 12/26/21 12/26/21 History [Macrobid] Allergies Allergy/AdvReac Type Severity Reaction Status Date / Time Penicillins Allergy Rash/Hives Verified 12/26/21 18:22 Physical Exam Vitals: Vital Signs Temp Pulse Resp BP Pulse Ox 12/28/21 14:00 75 18 12/28/21 12:00 75 18 111/66 96 12/28/21 08:00 98.2 F 75 18 107/59 91 L 12/28/21 02:00 76 16 12/28/21 00:00 98.2 F 76 16 95/62 93 L 12/27/21 20:00 99.2 F 80 18 103/51 90 L 12/27/21 16:00 91 18 94/48 92 L Intake and Output 12/28/21 12/28/21 12/28/21 06:59 14:59 22:59 Intake Total 120 Balance 120 Intake: Oral 120 Other: Voiding Method Toilet Toilet Results - Lab Results Most recent lab results Calcium 8.1 mg/dL (8.4-10.2) L 12/28/21 09:18 Magnesium 2.4 mg/dL (1.6-2.3) H 12/28/21 09:18 12/28/21 09:18 12/28/21 09:18 Assessment and Plan Plan: Assessment: 1. Acute kidney injury secondary to ATN secondary to severe sepsis and obstructive uropathy. Baseline creatinine near 1 and is up to 3.76 today. 2. Gram-negative UTI and E. coli bacteremia on antibiotics. 3. Left obstructive calculus status post stent placement 12/26/2021. 4. Benign hypertension. Blood pressure currently on the lower side. 5. Diabetes mellitus. Plan: Maintain normal saline at 75 mL an hour. Strict is and os. Check postvoid residual to make sure no urinary retention. Avoid nephrotoxins. Continue to hold antihypertensives. Continue to monitor renal function and urine output. Discussed with the patient and her present at bedside the potential need for renal replacement therapy if renal function continues to deteriorate. Thank you for the consultation. I will continue to follow the patient with you during her hospital stay.
[2021-12-28] MEDS: INSULIN ASPART (NovoLOG) 100 UNIT/ML VIAL SQ SCH ×4 (16:11→20:31)
[2021-12-28] MEDS: ATORVASTATIN 20 MG TAB PO SCH (16:11)
[2021-12-28 16:19] LABS: Glucose,Whole Blood 111 mg/dL (75-99)
[2021-12-28 20:25] LABS: Glucose,Whole Blood 122 mg/dL (75-99)
--- NOTE | 2021-12-29 00:07 | P.CONS ---
History of Present Illness - Reason for Consult Consult date: 12/28/21 Bacteremia Requesting physician: Shahid Rodriguez - Chief Complaint Fever and shortness of breath x few days - History of Present Illness Patient is a 61-year-old female presenting to the ER 3 days ago for evaluation of fever and shortness of breath and this patient fever has been going on for few days before presenting to the hospital however started having shortness of breath the day of presentation to the hospital patient recently has been diagnosed with a UTI as the patient complaining of increasing frequency and some burning along with left flank pain described the pain to be more of a dull aching to sharp about 5-6 out of 10 and some radiation across the left lower abdominal area patient has been treated in the outpatient setting with the Macrobid without any improvement by her primary care physician for presentation to the hospital patient did have temperature of 103 F patient was finally tachycardic she did have a white count of 8000 repeat is 11.2 with a left shift patient did have elevated BUN and creatinine no signs mild elevated did have a positive UA gardiner PCR was negative patient did have a CT of the chest abdominal pelvis which did shows subsegmental atelectasis obstructive calculus of the left ureter with junction with left-sided hydronephrosis patient has been evaluated by urology status post cystoscopy and left ureteral stent placement on 12/26/2021 patient urine cultures came positive with an E. coli now with a blood culture showing a gram-negative bacilli that has prompted this infectious disease consultation Review of Systems Positive point has been mentioned in the HPI rest of the systems are negative Past Medical History Past Medical History: Diabetes Mellitus, GERD/Reflux, Hyperlipidemia, Hypertension, Osteoarthritis (OA), Pneumonia Additional Past Medical History / Comment(s): diarrhea on and off, hx IBS, History of Any Multi-Drug Resistant Organisms: None Reported Past Surgical History: Section, Cholecystectomy Past Anesthesia/Blood Transfusion Reactions: No Reported Reaction Past Psychological History: Anxiety Smoking Status: Former smoker - Past Family History Father Family Medical History: CVA/TIA, Deep Vein Thrombosis (DVT) Mother Family Medical History: Dementia, Diabetes Mellitus Medications and Allergies Home Medications Medication Instructions Recorded Confirmed Type Rosuvastatin [Crestor] 10 mg PO DAILY 01/16/19 12/26/21 History Lisinopril-Hctz 20-25 mg 1 tab PO DAILY 05/26/21 12/26/21 History [Zestoretic -] metFORMIN HCL ER [Glucophage XR] 500 mg PO PC-SUPPER 05/26/21 12/26/21 History Nitrofurantoin Monohyd/M-Cryst 100 mg PO BID 12/26/21 12/26/21 History [Macrobid] Allergies Allergy/AdvReac Type Severity Reaction Status Date / Time Penicillins Allergy Rash/Hives Verified 12/26/21 18:22 Physical Exam Vitals: Vital Signs Temp Pulse Resp BP Pulse Ox 12/28/21 08:00 98.2 F 78 17 107/59 91 L 12/28/21 02:00 76 16 12/28/21 00:00 98.2 F 76 16 95/62 93 L 12/27/21 20:00 99.2 F 80 18 103/51 90 L 12/27/21 16:00 91 18 94/48 92 L Intake and Output 12/27/21 12/28/21 12/28/21 22:59 06:59 14:59 Intake Total 120 Balance 120 Intake: Oral 120 Other: Voiding Method Toilet Toilet # Voids 3 GENERAL DESCRIPTION: Middle-aged female lying in bed, no distress. No tachypnea or accessory muscle of respiration use. HEENT: Shows Pallor , no scleral icterus. Oral mucous membrane is dry. No pharyngeal erythema or thrush NECK: Trachea central, no thyromegaly. LUNGS: Unlabored breathing. Clear to auscultation anteriorly. No wheeze or crackle. HEART: S1, S2, regular rate and rhythm. No loud murmur ABDOMEN: Soft, no tenderness , guarding or rigidity, no organomegaly EXTREMITIES: No edema of feet. SKIN: No rash, no masses palpable. NEUROLOGICAL: The patient is awake, alert, oriented x3, mood and affect normal. Results CBC & Chem 7: 12/28/21 09:18 12/28/21 09:18 Labs: Abnormal Lab Results - Last 24 Hours (Table) 12/27/21 12/28/21 12/28/21 Range/Units 16:55 09:18 09:18 WBC 11.9 H (3.8-10.6) k/uL Plt Count 127 L (150-450) k/uL Neutrophils # 8.6 H (1.3-7.7) k/uL Sodium 135 L (137-145) mmol/L BUN 54 H (7-17) mg/dL Creatinine 3.76 H (0.52-1.04) mg/dL Glucose 137 H (74-99) mg/dL POC Glucose (mg/dL) 115 H (75-99) mg/dL Calcium 8.1 L (8.4-10.2) mg/dL Magnesium 2.4 H (1.6-2.3) mg/dL 12/28/21 Range/Units 11:43 WBC (3.8-10.6) k/uL Plt Count (150-450) k/uL Neutrophils # (1.3-7.7) k/uL Sodium (137-145) mmol/L BUN (7-17) mg/dL Creatinine (0.52-1.04) mg/dL Glucose (74-99) mg/dL POC Glucose (mg/dL) 110 H (75-99) mg/dL Calcium (8.4-10.2) mg/dL Magnesium (1.6-2.3) mg/dL Microbiology - Last 24 Hours (Table) 12/26/21 16:39 Blood Culture Gram Stain - Preliminary Blood Blood Culture - Preliminary Gram Neg Bacilli 12/26/21 16:34 Urine Culture - Preliminary Urine,Clean Catch Gram Neg Bacilli 12/26/21 16:39 Blood Culture Gram Stain - Preliminary Blood Blood Culture - Preliminary Escherichia coli 12/26/21 16:39 Blood Culture - Final Blood 12/26/21 16:39 Blood Culture - Final Blood Assessment and Plan (1) Sepsis secondary to UTI Current Visit: Yes Status: Acute Code(s): A41.9 - SEPSIS, UNSPECIFIED ORGANISM; N39.0 - URINARY TRACT INFECTION, SITE NOT SPECIFIED SNOMED Code(s): 708826864 Plan: 1patient presented to hospital with sepsis and respiratory have fever elevated white count sources complicated UTI in this patient did have a left-sided hydronephrosis status post cystoscopy and left ureteral stent placement with both urine and blood is growing gram-negative bacilli. 2penicillin allergy that would limit the number of antibiotics safe to use 3we will increase the dose of Rocephin to 2 g daily 4-gentle IV fluid We will follow on clinical condition and cultures to further adjust medication if needed Thank you for this consultation will follow this patient along with you Time with Patient: Greater than 30
[2021-12-29 00:13] LABS: Hepatitis B Surface Antigen Nonreactive (Nonreactive)
[2021-12-29 03:00] LABS: Hepatitis B Surface AB- Quant 3.5 mIU/mL; Hepatitis B Surface Antibody Nonreactive (Nonreactive)
[2021-12-29 05:54] LABS: Glucose,Whole Blood 94 mg/dL (75-99)
[2021-12-29] MEDS: INSULIN ASPART (NovoLOG) 100 UNIT/ML VIAL SQ SCH ×4 (05:56→21:04)
[2021-12-29 08:28] LABS: Calcium 8.4 mg/dL (8.4-10.2); Magnesium 2.4 mg/dL (1.6-2.3); Potassium 3.5 mmol/L (3.5-5.1)
[2021-12-29] MEDS: HEPARIN SODIUM,PORCINE/PF 5,000 UNIT/0.5 ML SYRINGE SQ SCH ×3 (08:58→23:40)
[2021-12-29] MEDS: ATORVASTATIN 20 MG TAB PO SCH (08:59)
--- NOTE | 2021-12-29 09:47 | P.PN ---
Subjective Progress Note Date: 12/29/21 No acute overnight event, denies any flank pain or gross hematuria. Creat down to 2.8 from 3.7. Urine and blood culture growing E coli Objective - Vital Signs Vital signs: Vital Signs Temp 98.1 F 12/29/21 03:55 Pulse 74 12/29/21 03:55 Resp 18 12/29/21 03:55 BP 130/82 12/29/21 03:55 Pulse Ox 98 12/29/21 03:55 Intake & Output 12/28/21 12/29/21 12/29/21 18:59 06:59 18:59 Intake Total 2140 1080 120 Output Total 100 1800 150 Balance 2039 Intake: Oral 2140 1080 120 Output: Urine 100 1800 150 Other: Voiding Method Toilet Toilet - Constitutional General appearance: Present: no acute distress - Psychiatric Psychiatric: Present: A&O x's 3 - Labs CBC & Chem 7: 12/28/21 09:18 12/29/21 07:25 Labs: Abnormal Lab Results - Last 24 Hours (Table) 12/28/21 12/28/21 12/28/21 Range/Units 09:18 09:18 11:43 WBC 11.9 H (3.8-10.6) k/uL Plt Count 127 L (150-450) k/uL Neutrophils # 8.6 H (1.3-7.7) k/uL Sodium 135 L (137-145) mmol/L Carbon Dioxide (22-30) mmol/L BUN 54 H (7-17) mg/dL Creatinine 3.76 H (0.52-1.04) mg/dL Glucose 137 H (74-99) mg/dL POC Glucose (mg/dL) 110 H (75-99) mg/dL Calcium 8.1 L (8.4-10.2) mg/dL Magnesium 2.4 H (1.6-2.3) mg/dL 12/28/21 12/28/21 12/29/21 Range/Units 16:17 20:23 07:25 WBC (3.8-10.6) k/uL Plt Count (150-450) k/uL Neutrophils # (1.3-7.7) k/uL Sodium (137-145) mmol/L Carbon Dioxide 21 L (22-30) mmol/L BUN 49 H (7-17) mg/dL Creatinine 2.82 H (0.52-1.04) mg/dL Glucose 111 H (74-99) mg/dL POC Glucose (mg/dL) 111 H 122 H (75-99) mg/dL Calcium (8.4-10.2) mg/dL Magnesium 2.4 H (1.6-2.3) mg/dL Microbiology - Last 24 Hours (Table) 12/26/21 16:34 Urine Culture - Final Urine,Clean Catch Escherichia coli 12/26/21 16:39 Blood Culture Gram Stain - Preliminary Blood Blood Culture - Preliminary Gram Neg Bacilli Assessment and Plan Assessment: POD 3 S/P left ureteral stent placement by Dr Grullon or septic left ureteral stent. Urine and blood culture growing E Coli -No further intervention from urology standpoint, Can fu with Dr Grullon as an outpatient in 7-10 days. Discussed with her she will eventually need definitive stone managment for her stone once sepsis resolves
[2021-12-29 11:31] LABS: Glucose,Whole Blood 96 mg/dL (75-99)
[2021-12-29] MEDS ORDERED: POTASSIUM CHLORIDE ER 20 MEQ TAB.ER PO STA (12:24)
--- NOTE | 2021-12-29 12:25 | P.PN ---
Subjective Patient is seen in follow-up for acute kidney injury. Renal function improving. Urine output also improved. No vomiting or diarrhea. Oral intake good. Hemodynamically stable. Vital signs are stable. General: The patient appeared well nourished and normally developed. HEENT: Head exam is unremarkable. LUNGS: Breath sounds decreased. HEART: Rate and Rhythm are regular. ABDOMEN: Soft, obese. EXTREMITITES: Trace edema. Objective - Vital Signs Vital signs: Vital Signs Temp 98.0 F 12/29/21 08:00 Pulse 77 12/29/21 08:00 Resp 16 12/29/21 08:00 BP 138/75 12/29/21 08:00 Pulse Ox 94 L 12/29/21 08:00 Intake & Output 12/28/21 12/29/21 12/29/21 18:59 06:59 18:59 Intake Total 2140 1080 120 Output Total 100 1800 150 Balance 0 720 -30 Intake: Oral 2140 1080 120 Output: Urine 100 1800 150 Other: Voiding Method Toilet Toilet Toilet - Labs CBC & Chem 7: 12/28/21 09:18 12/29/21 07:25 Labs: Abnormal Lab Results - Last 24 Hours (Table) 12/28/21 12/28/21 12/29/21 Range/Units 16:17 20:23 07:25 Carbon Dioxide 21 L (22-30) mmol/L BUN 49 H (7-17) mg/dL Creatinine 2.82 H (0.52-1.04) mg/dL Glucose 111 H (74-99) mg/dL POC Glucose (mg/dL) 111 H 122 H (75-99) mg/dL Magnesium 2.4 H (1.6-2.3) mg/dL Microbiology - Last 24 Hours (Table) 12/26/21 16:34 Urine Culture - Final Urine,Clean Catch Escherichia coli 12/26/21 16:39 Blood Culture Gram Stain - Preliminary Blood Blood Culture - Preliminary Gram Neg Bacilli Assessment and Plan Plan: Assessment: 1. Acute kidney injury secondary to ATN secondary to severe sepsis and obstructive uropathy. Baseline creatinine near 1 and peaked at 3.76 this admi ssion - 2.82 today. Nonoliguric. 2. E. coli UTI and bacteremia on antibiotics. 3. Left obstructive calculus status post stent placement 12/26/2021. 4. Benign hypertension. Controlled. 5. Diabetes mellitus. Plan: Decrease rate of normal saline to 50 mL an hour. Encouraged oral intake. Avoid nephrotoxins. Continue to hold antihypertensives. Continue to monitor renal function and urine output.
--- NOTE | 2021-12-29 12:50 | P.PN ---
Subjective Progress Note Date: 12/29/21 Hospital course: Patient is a very pleasant 61-year-old female with a past medical history of hypertension, hyperlipidemia, type II clw-lwgbeei-qzflnmgyp diabetes mellitus, and renal calculi. She presented to the emergency department on 12/26/21 with a chief complaint of fever, chills, nausea, and urinary complaints including urinary retention, frequency, dysuria, and left flank pain radiating into groin. These symptoms started 2 days prior to coming to the emergency department and patient reports that she notified her PCP who prescribed her nitrofurantoin, however secondary to persistence and slightly worsening of urinary symptoms (significant retention and dribbling) she came to the emergency department to be evaluated. In the emergency department patient underwent full evaluation. CT revealed an obstructing calculus at the left ureteral vesicular junction with left-sided hydronephrosis and hydroureter. Lab findings positive for UTI and acute kidney injury. Patient was admitted under our services with consultation to urology. Patient underwent cystoscopy with stent placement on 12/26/21. Urine cultures positive for gram-negative bacilli . Blood cultures also revealing preliminary results of being positive positive for gram-negative ba cilli, E. coli. Patient remains on IV antibiotics with Rocephin 2 g every 24 hours. Renal functioning is worsening with a.m. labs. Patient reports she has not received IV hydration in 24 hours secondary to poor IV access. Order placed for midline at this time and patient to undergo vigorous IV hydration. If no improvement in renal function, nephrology will be consulted. Physical exam: Patient was seen and fully evaluated at bedside this morning. She was sitting up in chair at bedside. Patient reports that she continues to feel better overall and other than feeling slight malaise and fatigued her symptoms of chills, nausea, and all urinary complaints including flank pain have resolved. Midline was placed yesterday secondary to poor IV access. Final urine culture results positive for E. coli and blood culture final results also positive for E. coli. Patient remains on IV antibiotic Rocephin 2 g every 24 hours and gentle hydration with IV fluids. Morning labs revealing improvement of renal function with BUN of 49, creatinine 2.82, and GFR of 17. Vital signs reviewed and stable. General: Nontoxic, no distress and appears stated age. Derm: Skin warm and dry, normal coloration for ethnicity. Head: Atraumatic, normocephalic and symmetric. Eyes: EOMs intact, no lid lag, and anicteric sclera Mouth: no lip lesions, mucus membranes moist Cardiovascular: regular rate and rhythm with normal S1S2, no murmur, positive posterior tibial pulses bilaterally, and cap refill < 2 seconds. Lungs: Respirations even, regular, and unlabored on room air. Lungs CTA bilaterally, no rhonchi, no rales, no wheezing, and no accessory muscle usage. Abdominal: soft, nontender to palpation, no guarding, no appreciable organomegaly Ext: ROM intact. No gross muscle atrophy, no edema, no contractures Neuro: Speech clear, face symmetrical and CN II-XII grossly intact with no noted focal neuro deficits Psych: Alert and oriented to person, place, time, and situation. Appropriate and pleasant affect. Assessment and Plan of Care: Acute obstructive renal calculus with left-sided hydronephrosis and hydroureter UTI, preliminary culture results gram-negative bacilli E. coli bacteremia Sepsis secondary to above Acute kidney injury Lactic acidosis -Urology following, patient underwent cystoscopy with stent placement 12/26/21. -Continue IV antibiotic Rocephin 2 g every 24 hours. -Continue hydration with IV fluids and strict monitoring of I's and O's. -Nephrology following -Blood culture positive for E. coli. Repeat daily blood cultures until negative. -Urine culture positive for E. coli Gek-rawqshc-gmttdfnbs diabetes mellitus type 2 -Hold Glucophage in place patient on glycemic protocol with NovoLog sliding scale. Hypertension -Hold lisinopril secondary to [facility], vital signs stable. Hyperlipidemia -Continue daily medication management with atorvastatin 20 mg daily. CODE STATUS: Full code DVT prophylaxis: Heparin Discussed with: Patient and RN Anticipated discharge date: Clinical course to determine Anticipated discharge place: Home A total of 39 minutes was spent on the care of this complex patient more than 50% of the time was spent in counseling and care coordination. I reviewed the documentation as provided by the GERSON above, who is the original author of this note. I agree with the documented assessment and plan, with the following changes: None Objective - Vital Signs Vital signs: Vital Signs Temp 98.0 F 12/29/21 08:00 Pulse 77 12/29/21 08:00 Resp 16 12/29/21 08:00 BP 138/75 12/29/21 08:00 Pulse Ox 94 L 12/29/21 08:00 Intake & Output 12/28/21 12/29/21 12/29/21 18:59 06:59 18:59 Intake Total 2139 1080 120 Output Total 100 1800 150 Balance 2039 Intake: Oral 2139 1080 120 Output: Urine 100 1800 150 Other: Voiding Method Toilet Toilet Toilet - Labs CBC & Chem 7: 12/28/21 09:18 12/29/21 07:25 Labs: Abnormal Lab Results - Last 24 Hours (Table) 12/28/21 12/28/21 12/29/21 Range/Units 16:17 20:23 07:25 Carbon Dioxide 21 L (22-30) mmol/L BUN 49 H (7-17) mg/dL Creatinine 2.82 H (0.52-1.04) mg/dL Glucose 111 H (74-99) mg/dL POC Glucose (mg/dL) 111 H 122 H (75-99) mg/dL Magnesium 2.4 H (1.6-2.3) mg/dL Microbiology - Last 24 Hours (Table) 12/26/21 16:34 Urine Culture - Final Urine,Clean Catch Escherichia coli 12/26/21 16:39 Blood Culture Gram Stain - Preliminary Blood Blood Culture - Preliminary Gram Neg Bacilli
[2021-12-29 16:43] LABS: Glucose,Whole Blood 98 mg/dL (75-99)
[2021-12-29] MEDS: SODIUM CHLORIDE 0.9% 1,000 ML IV SCH (19:26)
[2021-12-29 20:21] LABS: Glucose,Whole Blood 95 mg/dL (75-99)
--- NOTE | 2021-12-30 00:06 | P.PN ---
Subjective Progress Note Date: 12/29/21 Principal diagnosis: E. coli urinary tract infection and bacteremia Patient is a 60-year-old female presented to hospital for fever or shortness of breath and this patient has been diagnosed with a complicated UTI patient is status post cystoscopy with left ureteral stent placement. She did have evidence of positive blood cultures with E. coli. On today's evaluation and that is 12/29/2021, the patient denies having any fever or chills, the patient is breathing comfortably, denies having any chest pain or shortness of breath or cough no nausea no vomiting no abdominal pain or any Objective - Vital Signs Vital signs: Vital Signs Temp 98.1 F 12/29/21 12:00 Pulse 77 12/29/21 14:00 Resp 18 12/29/21 12:00 BP 145/89 12/29/21 12:00 Pulse Ox 97 12/29/21 12:00 Intake & Output 12/28/21 12/29/21 12/29/21 18:59 06:59 18:59 Intake Total 2140 1080 360 Output Total 100 1800 250 Balance 2040 -720 110 Intake: Oral 2140 1080 360 Output: Urine 100 1800 250 Other: Voiding Method Toilet Toilet Toilet - Exam GENERAL DESCRIPTION: A middle-age female lying in bed in no distress RESPIRATORY SYSTEM: Unlabored breathing , decreased breath sounds at bases HEART: S1 S2 regular rate and rhythm , ABDOMEN: Soft , no tenderness EXTREMITIES: No edema feet - Labs CBC & Chem 7: 12/28/21 09:18 12/29/21 07:25 Labs: Abnormal Lab Results - Last 24 Hours (Table) 12/28/21 12/28/21 12/29/21 Range/Units 16:17 20:23 07:25 Carbon Dioxide 21 L (22-30) mmol/L BUN 49 H (7-17) mg/dL Creatinine 2.82 H (0.52-1.04) mg/dL Glucose 111 H (74-99) mg/dL POC Glucose (mg/dL) 111 H 122 H (75-99) mg/dL Magnesium 2.4 H (1.6-2.3) mg/dL Microbiology - Last 24 Hours (Table) 12/26/21 16:39 Blood Culture Gram Stain - Final Blood Blood Culture - Final Escherichia coli 12/26/21 16:39 Blood Culture Gram Stain - Final Blood Blood Culture - Preliminary Escherichia coli 12/26/21 16:34 Urine Culture - Final Urine,Clean Catch Escherichia coli Assessment and Plan (1) Sepsis secondary to UTI Current Visit: Yes Status: Acute Code(s): A41.9 - SEPSIS, UNSPECIFIED ORGANISM; N39.0 - URINARY TRACT INFECTION, SITE NOT SPECIFIED SNOMED Code(s): 331790218 Plan: 1patient presented to hospital with sepsis and respiratory have fever elevated white count sources complicated UTI in this patient did have a left-sided hydronephrosis status post cystoscopy and left ureteral stent placement with both urine and blood is growing gram-negative bacilli. 2penicillin allergy that would limit the number of antibiotics safe to use 3patient will continue with Rocephin to 2 g daily If continued to improve to finish therapy with oral Cipro 10 days Time with Patient: Less than 30
[2021-12-30 06:12] LABS: Glucose,Whole Blood 112 mg/dL (75-99)
[2021-12-30] MEDS: INSULIN ASPART (NovoLOG) 100 UNIT/ML VIAL SQ SCH ×4 (06:21→20:04)
[2021-12-30] MEDS: SODIUM CHLORIDE 0.9% 1,000 ML IV SCH (06:21)
[2021-12-30 07:26] LABS: HGB 11.4 gm/dL (11.4-16.0); Hypochromasia Slight; MCHC 31.6 g/dL (31.0-37.0); Mean Platelet Volume 9.7; Platelet Count 202 k/uL (150-450); RBC 3.68 m/uL (3.80-5.40); RDW 14.4 % (11.5-15.5); WBC 10.4 k/uL (3.8-10.6)
[2021-12-30 07:45] LABS: Albumin 2.6 g/dL (3.5-5.0); Calcium 8.5 mg/dL (8.4-10.2); Magnesium 2.3 mg/dL (1.6-2.3); Potassium 3.8 mmol/L (3.5-5.1); Total Bilirubin 0.7 mg/dL (0.2-1.3); Total Protein 5.6 g/dL (6.3-8.2)
[2021-12-30] MEDS: ATORVASTATIN 20 MG TAB PO SCH (08:31)
[2021-12-30] MEDS: HEPARIN SODIUM,PORCINE/PF 5,000 UNIT/0.5 ML SYRINGE SQ SCH ×3 (08:31→23:55)
[2021-12-30] MEDS ORDERED: FUROSEMIDE 10 MG/ML 4 ML VIAL IV STA (10:23)
--- NOTE | 2021-12-30 10:24 | P.PN ---
Subjective Patient is seen in follow-up for acute kidney injury. Renal function improving. Good urine output. No vomiting or diarrhea. Oral intake good. H emodynamically stable. No changes overnight. No active complaints. Vital signs are stable. General: The patient appeared well nourished and normally developed. HEENT: Head exam is unremarkable. LUNGS: Breath sounds decreased. HEART: Rate and Rhythm are regular. ABDOMEN: Soft, obese. EXTREMITITES: 1+ edema. Objective - Vital Signs Vital signs: Vital Signs Temp 97.9 F 12/30/21 08:00 Pulse 81 12/30/21 08:00 Resp 18 12/30/21 08:00 BP 154/81 12/30/21 08:00 Pulse Ox 96 12/30/21 08:00 Intake & Output 12/29/21 12/30/21 12/30/21 18:59 06:59 18:59 Intake Total 480 240 960 Output Total 1170 1000 500 Balance -690 -760 460 Intake: Oral 480 240 960 Output: Urine 1170 1000 500 Other: Voiding Method Toilet Toilet # Bowel Movements 0 - Labs CBC & Chem 7: 12/30/21 06:54 12/30/21 06:54 Labs: Abnormal Lab Results - Last 24 Hours (Table) 12/30/21 12/30/21 12/30/21 Range/Units 06:09 06:54 06:54 RBC 3.68 L (3.80-5.40) m/uL Chloride 112 H (98-107) mmol/L Carbon Dioxide 21 L (22-30) mmol/L BUN 39 H (7-17) mg/dL Creatinine 2.09 H (0.52-1.04) mg/dL Glucose 123 H (74-99) mg/dL POC Glucose (mg/dL) 112 H (75-99) mg/dL AST 63 H (14-36) U/L ALT 39 H (4-34) U/L Alkaline Phosphatase 203 H (38-126) U/L Total Protein 5.6 L (6.3-8.2) g/dL Albumin 2.6 L (3.5-5.0) g/dL Microbiology - Last 24 Hours (Table) 12/29/21 07:25 Blood Culture - Preliminary Blood No Growth after 24 hours 12/28/21 17:04 Blood Culture - Preliminary Blood No Growth after 24 hours 12/26/21 16:39 Blood Culture Gram Stain - Final Blood Blood Culture - Final Escherichia coli 12/26/21 16:39 Blood Culture Gram Stain - Final Blood Blood Culture - Preliminary Escherichia coli Assessment and Plan Plan: Assessment: 1. Acute kidney injury secondary to ATN secondary to severe sepsis and obstructive uropathy. Baseline creatinine near 1 and peaked at 3.76 this admission - 2.09 today. Nonoliguric. 2. E. coli UTI and bacteremia on antibiotics. 3. Left obstructive calculus status post stent placement 12/26/2021. 4. Benign hypertension. Stable. 5. Diabetes mellitus. 6. Edema. 7. Mild metabolic acidosis secondary to acute kidney injury and IV fluids. Monitor. Plan: Hep-Lock IV fluids. Lasix 40 mg IV once today. Add amlodipine 5 mg once daily. Hold for systolic blood pressure less than 125. Encouraged oral intake. Avoid nephrotoxins. Continue to hold antihypertensives. Continue to monitor renal function and urine output.
[2021-12-30] MEDS: amLODIPine 5 MG TAB PO SCH (10:45)
[2021-12-30 11:35] LABS: Glucose,Whole Blood 94 mg/dL (75-99)
--- NOTE | 2021-12-30 12:46 | P.PN ---
Subjective Progress Note Date: 12/30/21 Hospital course: Patient is a very pleasant 61-year-old female with a past medical history of hypertension, hyperlipidemia, type II aap-jqhtfxv-ymtvnzxrh diabetes mellitus, and renal calculi. She presented to the emergency department on 12/26/21 with a chief complaint of fever, chills, nausea, and urinary complaints including urinary retention, frequency, dysuria, and left flank pain radiating into groin. These symptoms started 2 days prior to coming to the emergency department and patient reports that she notified her PCP who prescribed her nitrofurantoin, however secondary to persistence and slightly worsening of urinary symptoms (significant retention and dribbling) she came to the emergency department to be evaluated. In the emergency department patient underwent full evaluation. CT revealed an obstructing calculus at the left ureteral vesicular junction with left-sided hydronephrosis and hydroureter. Lab findings positive for UTI and acute kidney injury. Patient was admitted under our services with consultation to urology. Patient underwent cystoscopy with stent placement on 12/26/21. Urine cultures positive for gram-negative bacilli . Blood cultures also revealing preliminary results of being positive positive for gram-negative ba cilli, E. coli. Patient remains on IV antibiotics with Rocephin 2 g every 24 hours. Renal functioning is worsening with a.m. labs. Patient reports she has not received IV hydration in 24 hours secondary to poor IV access. Order placed for midline at this time and patient to undergo vigorous IV hydration. If no improvement in renal function, nephrology will be consulted. Physical exam: Patient was seen and fully evaluated at bedside this morning. She was ambulating in room . Patient reports that she continues to feel better each and every day. Renal function is improving slowly with IV fluid hydration. Morning labs reveal BUN of 39, creatinine 2.09, and GFR of 25. Urinary output over the past 24 hours was 2170 mL's. IV fluids discontinued by nephrology today secondary to mild metabolic acidosis resulting from acute kidney injury and p ersistent IV fluids. We will monitor overnight and repeat a.m. labs to evaluate renal function at that time. Pending improvement in renal function and repeat blood culture results, plan is to discharge patient home with oral ciprofloxacin 10 days. Repeat blood culture showing no growth after 24 hours. Vital signs reviewed and stable. General: Nontoxic, no distress and appears stated age. Derm: Skin warm and dry, normal coloration for ethnicity. Head: Atraumatic, normocephalic and symmetric. Eyes: EOMs intact, no lid lag, and anicteric sclera Mouth: no lip lesions, mucus membranes moist Cardiovascular: regular rate and rhythm with normal S1S2, no murmur, positive posterior tibial pulses bilaterally, and cap refill < 2 seconds. Lungs: Respirations even, regular, and unlabored on room air. Lungs CTA bilaterally, no rhonchi, no rales, no wheezing, and no accessory muscle usage. Abdominal: soft, nontender to palpation, no guarding, no appreciable organomegaly Ext: ROM intact. No gross muscle atrophy, no edema, no contractures Neuro: Speech clear, face symmetrical and CN II-XII grossly intact with no noted focal neuro deficits Psych: Alert and oriented to person, place, time, and situation. Appropriate and pleasant affect. Assessment and Plan of Care: Acute obstructive renal calculus with left-sided hydronephrosis and hydroureter UTI, preliminary culture results gram-negative bacilli E. coli bacteremia Sepsis secondary to above Acute kidney injury Lactic acidosis -Urology following, patient underwent cystoscopy with stent placement 12/26/21. -Continue IV antibiotic Rocephin 2 g every 24 hours. -Continue hydration with IV fluids and strict monitoring of I's and O's. -Nephrology following -Blood culture positive for E. coli. Repeat daily blood cultures until negative. -Urine culture positive for E. coli Epv-seukfdy-ehcswijzx diabetes mellitus type 2 -Hold Glucophage in place patient on glycemic protocol with NovoLog sliding scale. Hypertension -Hold lisinopril secondary to [facility], vital signs stable. Hyperlipidemia -Continue daily medication management with atorvastatin 20 mg daily. Transaminitis -AST 63, ALT 39, and alkaline phosphatase of 203. -Unclear etiology, likely secondary to sepsis resulting from E. coli bacteremia and UTI. CODE STATUS: Full code DVT prophylaxis: Heparin Discussed with: Patient and RN Anticipated discharge date: Clinical course to determine, possibly tomorrow morning Anticipated discharge place: Home A total of 37 minutes was spent on the care of this complex patient more than 50% of the time was spent in counseling and care coordination. I reviewed the documentation as provided by the GERSON above, who is the original author of this note. I agree with the documented assessment and plan, with the following changes: None Objective - Vital Signs Vital signs: Vital Signs Temp 98.3 F 12/30/21 04:15 Pulse 74 12/30/21 04:15 Resp 20 12/30/21 04:15 BP 131/80 12/30/21 04:15 Pulse Ox 95 12/30/21 04:15 Intake & Output 12/29/21 12/30/21 12/30/21 18:59 06:59 18:59 Intake Total 480 240 420 Output Total 1170 1000 Balance -690 -760 420 Intake: Oral 480 240 420 Output: Urine 1170 1000 Other: Voiding Method Toilet Toilet # Bowel Movements 0 - Labs CBC & Chem 7: 12/30/21 06:54 12/30/21 06:54 Labs: Abnormal Lab Results - Last 24 Hours (Table) 12/30/21 12/30/21 12/30/21 Range/Units 06:09 06:54 06:54 RBC 3.68 L (3.80-5.40) m/uL Chloride 112 H (98-107) mmol/L Carbon Dioxide 21 L (22-30) mmol/L BUN 39 H (7-17) mg/dL Creatinine 2.09 H (0.52-1.04) mg/dL Glucose 123 H (74-99) mg/dL POC Glucose (mg/dL) 112 H (75-99) mg/dL AST 63 H (14-36) U/L ALT 39 H (4-34) U/L Alkaline Phosphatase 203 H (38-126) U/L Total Protein 5.6 L (6.3-8.2) g/dL Albumin 2.6 L (3.5-5.0) g/dL Microbiology - Last 24 Hours (Table) 12/28/21 17:04 Blood Culture - Preliminary Blood No Growth after 24 hours 12/26/21 16:39 Blood Culture Gram Stain - Final Blood Blood Culture - Final Escherichia coli 12/26/21 16:39 Blood Culture Gram Stain - Final Blood Blood Culture - Preliminary Escherichia coli
[2021-12-30 16:25] LABS: Glucose,Whole Blood 90 mg/dL (75-99)
--- NOTE | 2021-12-30 17:37 | P.PN ---
Subjective Progress Note Date: 12/30/21 Principal diagnosis: E. coli urinary tract infection and bacteremia Patient is a 60-year-old female presented to hospital for fever or shortness of breath and this patient has been diagnosed with a complicated UTI patient is status post cystoscopy with left ureteral stent placement. She did have evidence of positive blood cultures with E. coli. On today's evaluation and that is 12/30/2021, the patient remains to be afebrile, the patient is breathing comfortably on room air, the patient denies having any chest pain or shortness of breath or cough no nausea no vomiting no abdominal pain or any diarrhea Objective - Vital Signs Vital signs: Vital Signs Temp 97.9 F 12/30/21 08:00 Pulse 70 12/30/21 12:00 Resp 17 12/30/21 12:00 BP 136/77 12/30/21 12:00 Pulse Ox 96 12/30/21 12:00 Intake & Output 12/29/21 12/30/21 12/30/21 18:59 06:59 18:59 Intake Total 624 886 5017 Output Total 1170 1000 3700 Balance -690 760 -2240 Intake: Oral 458 799 2371 Output: Urine 1170 1000 3700 Other: Voiding Method Toilet Toilet Toilet # Voids 2 # Bowel Movements 0 1 - Exam GENERAL DESCRIPTION: A middle-age female lying in bed in no distress RESPIRATORY SYSTEM: Unlabored breathing , decreased breath sounds at bases HEART: S1 S2 regular rate and rhythm , ABDOMEN: Soft , no tenderness EXTREMITIES: No edema feet - Labs CBC & Chem 7: 12/30/21 06:54 12/30/21 06:54 Labs: Abnormal Lab Results - Last 24 Hours (Table) 12/30/21 12/30/21 12/30/21 Range/Units 06:09 06:54 06:54 RBC 3.68 L (3.80-5.40) m/uL Chloride 112 H (98-107) mmol/L Carbon Dioxide 21 L (22-30) mmol/L BUN 39 H (7-17) mg/dL Creatinine 2.09 H (0.52-1.04) mg/dL Glucose 123 H (74-99) mg/dL POC Glucose (mg/dL) 112 H (75-99) mg/dL AST 63 H (14-36) U/L ALT 39 H (4-34) U/L Alkaline Phosphatase 203 H (38-126) U/L Total Protein 5.6 L (6.3-8.2) g/dL Albumin 2.6 L (3.5-5.0) g/dL Microbiology - Last 24 Hours (Table) 12/29/21 07:25 Blood Culture - Preliminary Blood No Growth after 24 hours 12/28/21 17:04 Blood Culture - Preliminary Blood No Growth after 24 hours 12/26/21 16:39 Blood Culture Gram Stain - Final Blood Blood Culture - Final Escherichia coli 12/26/21 16:39 Blood Culture Gram Stain - Final Blood Blood Culture - Preliminary Escherichia coli Assessment and Plan (1) Sepsis secondary to UTI Current Visit: Yes Status: Acute Code(s): A41.9 - SEPSIS, UNSPECIFIED ORGANISM; N39.0 - URINARY TRACT INFECTION, SITE NOT SPECIFIED SNOMED Code(s): 899158252 Plan: 1patient presented to hospital with sepsis and respiratory have fever elevated white count sources complicated UTI in this patient did have a left-sided hydronephrosis status post cystoscopy and left ureteral stent placement with both urine and blood is growing gram-negative bacilli. 2penicillin allergy that would limit the number of antibiotics safe to use 3patient seemed to be clinically improving with Rocephin to 2 g daily and will continue while inpatient with the plan to finish therapy with oral Cipro Time with Patient: Less than 30
[2021-12-30 19:59] LABS: Glucose,Whole Blood 131 mg/dL (75-99)
[2021-12-31 01:50] VITALS: RESP 18
[2021-12-31 06:00] LABS: Glucose,Whole Blood 112 mg/dL (75-99)
[2021-12-31] MEDS: INSULIN ASPART (NovoLOG) 100 UNIT/ML VIAL SQ SCH ×2 (06:17→11:42)
[2021-12-31] MEDS: amLODIPine 5 MG TAB PO SCH (08:56)
[2021-12-31] MEDS: HEPARIN SODIUM,PORCINE/PF 5,000 UNIT/0.5 ML SYRINGE SQ SCH (08:56)
[2021-12-31] MEDS: ATORVASTATIN 20 MG TAB PO SCH (08:56)
[2021-12-31 10:33] LABS: Calcium 8.8 mg/dL (8.4-10.2); Potassium 3.8 mmol/L (3.5-5.1)
[2021-12-31 10:39] VITALS: BMI 55.4
[2021-12-31 11:36] LABS: Glucose,Whole Blood 116 mg/dL (75-99)
--- NOTE | 2021-12-31 12:07 | P.DS ---
Providers Date of admission: 12/26/21 19:36 Expected date of discharge: 12/31/21 Attending physician: Randell Platt MD Consults: 12/26/21 19:44 Consult Physician Routine Consulting Provider: Hank Grullon Consult Reason/Comments: OBSTRUCTING RENAL CALCULUS, UTI Do you want consulting provider notified?: Already Contacted 12/28/21 13:14 Consult Physician Routine Consulting Provider: Deyvi Strickland Consult Reason/Comments: bacteremia Do you want consulting provider notified?: Yes 12/28/21 13:40 Consult Physician Routine Consulting Provider: Kennedi Feliz Consult Reason/Comments: León, worsening Do you want consulting provider notified?: Yes Primary care physician: General Acute Hospital Course: Discharge Diagnosis: Acute obstructive renal calculus with left-sided hydronephrosis and hydroureter, status post cystoscopy with stent placement on 12/26/21. Patient to follow up outpatient with urology in 1 week. E. coli UTI, received IV antibiotics E. coli bacteremia, patient discharged home on ciprofloxacin 500 mg twice a day 10 days and to follow up with infectious disease in 1 week. Sepsis secondary to above Acute kidney injury, improved. Creatinine elevated up to 3.76 and was 1.67 upon discharge. Patient also discharged with a prescription for repeat BMP to be completed in 3 days with results to be sent to PCP, urology, nephrology and infectious disease for follow-up. In addition patient to follow-up with nephrology in 1 week. Lactic acidosis, resolved [id number] diabetes mellitus type 2, continue daily medication regimen with metformin Hypertension, lisinopril discontinued secondary to LEÓN and patient discharged home on amlodipine 5 mg daily. Hyperlipidemia, Continue daily medication management with rosuvastatin 10 mg daily. Transaminitis, Unclear etiology, likely secondary to sepsis resulting from E. coli bacteremia and UTI. Patient will require repeat CMP for evaluation of liver and renal function upon completion of antibiotic course for treatment of bacteremia. This is documented in discharge instructions given to patient and pt verbalized understanding. Hospital Course: Patient is a very pleasant 61-year-old female with a past medical history of hypertension, hyperlipidemia, type II [id number] diabetes mellitus, and renal calculi. She presented to the emergency department on 12/26/21 with a chief complaint of fever, chills, nausea, and urinary complaints including urinary retention, frequency, dysuria, and left flank pain radiating into groin. These symptoms started 2 days prior to coming to the emergency department and patient reports that she notified her PCP who prescribed her nitrofurantoin, however secondary to persistence and slightly worsening of urinary symptoms (significant retention and dribbling) she came to the emergency department to be evaluated. In the emergency department patient underwent full evaluation. CT revealed an obstructing calculus at the left ureteral vesicular junction with left-sided hydronephrosis and hydroureter. Lab findings positive for UTI and acute kidney injury. Patient was admitted under our services with consultation to urology. Patient underwent cystoscopy with stent placement on 12/26/21. She remained on IV antibiotics with Rocephin 2 g IVPB daily. Urine culture resulted positive forE. coli. Blood culture 2 draws positive for E. coli with repeat cultures showing no growth after 48 hours. Infectious disease, nephrology, and urology following. Patient's renal function worsened during hospitalization and creatinine elevated up to 3.76. This was treated with IV hydration and slowly improved. Patient continued to report feeling better and better each and every day. Culture and sensitivity results for blood and urine resulted positive for E. coli. Patient is medically stable. Creatinine down to 1.67. Patient being discharged home on oral antibiotic ciprofloxacin 500 mg twice a day for 10 additional days. Patient to Follow up outpatient with infectious disease, urology, nephrology, and PCP. In addition to oral antibiotic, lisinopril was discontinued and patient started on amlodipine for blood pressure management. Physical exam: Vital signs reviewed and stable. General: Nontoxic, no distress and appears stated age. Derm: Skin warm and dry, normal coloration for ethnicity. Head: Atraumatic, normocephalic and symmetric. Eyes: EOMs intact, no lid lag, and anicteric sclera Mouth: no lip lesions, mucus membranes moist Cardiovascular: regular rate and rhythm with normal S1S2, no murmur, positive posterior tibial pulses bilaterally, and cap refill < 2 seconds. Lungs: Respirations even, regular, and unlabored on room air. Lungs CTA bilaterally, no rhonchi, no rales, no wheezing, and no accessory muscle usage. Abdominal: Obese abdomen soft, nontender to palpation, no guarding, no appreciable organomegaly Ext: ROM intact. No gross muscle atrophy, no edema, no contractures Neuro: Speech clear, face symmetrical and CN II-XII grossly intact with no noted focal neuro deficits Psych: Alert and oriented to person, place, time, and situation. Appropriate and pleasant affect. A total of 43 minutes of time were spent preparing this complex discharge summary. Pt was discharged on 12/31/21 at 12:03 PM Patient Condition at Discharge: Stable Plan - Discharge Summary Discharge Rx Participant: Yes New Discharge Prescriptions: New amLODIPine [Norvasc] 5 mg PO DAILY 30 Days #30 tab Ciprofloxacin HCl [Cipro] 500 mg PO BID 10 Days #20 tab Continue Rosuvastatin [Crestor] 10 mg PO DAILY metFORMIN HCL ER [Glucophage XR] 500 mg PO PC-SUPPER Discontinued Lisinopril-Hctz 20-25 mg [Zestoretic 20-25] 1 tab PO DAILY Nitrofurantoin Monohyd/M-Cryst [Macrobid] 100 mg PO BID Discharge Medication List Rosuvastatin [Crestor] 10 mg PO DAILY 01/16/19 [History] metFORMIN HCL ER [Glucophage XR] 500 mg PO PC-SUPPER 05/26/21 [History] Ciprofloxacin HCl [Cipro] 500 mg PO BID 10 Days #20 tab 12/31/21 [Rx] amLODIPine [Norvasc] 5 mg PO DAILY 30 Days #30 tab 12/31/21 [Rx] Follow up Appointment(s)/Referral(s): Neyda Huntley MD [Primary Care Provider] - 01/04/22 1:45 pm Keshav Nina DO [STAFF PHYSICIAN] - 1 Week (please call to make an appointment) Deyvi Strickland MD [STAFF PHYSICIAN] - 01/12/22 2:45 pm (bring insurance card and photo ID) Hank Grullon MD [STAFF PHYSICIAN] - 10 Days (office will call you with appointment) Ambulatory/Diagnostic Orders: Basic Metabolic Panel [LAB.AMB] Time Frame: 3 Days, Location: None Selected Patient Instructions/Handouts: Urinary Tract Infection in Women (DC), Sepsis (DC) Activity/Diet/Wound Care/Special Instructions: Activity: As tolerated. Take breaks as needed. Diet: Heart healthy and carb consistent diet. Avoid salts, or foods with hidden salts such as canned or boxed foods and frozen dinners. Extra salt makes your heart work harder and traps the fluid in your body for longer. Special Instructions: Take all of your medications as directed and remember to keep all of your doctor's appointments and follow-up as needed. Remember, as we discussed it is of utmost importance to take antibiotic directly as prescribed and complete entire course. You will need to follow up with infectious disease specialist, Dr. Strickland in one week to ensure resolution of your infection. After you have completed treatment of your E. coli UTI and E. coli bacteremia it is important to again follow up with your primary doctor, Dr. Huntley For repeat/follow-up evaluation. It is also recommended that you have a repeat CMP to evaluate not only your kidney function but also your liver function after you have completed treatment as both were elevated during this infection. Also please review your discharge medication list as there have been changes to your daily medication regimen. Lisinopri-hydrochlorothiazide has been discontinued and you have been started on Norvasc for blood pressure management. Thank you for allowing us to participate in your care, it was truly a pleasure having you for our patient!!! Discharge Disposition: HOME SELF-CARE
[2021-12-31 12:09] VITALS: BP 134/76; PULSE 74; TEMP 98.3
== END 2021-12-31 13:04 | disposition home or self-care (01) | DRG 871 ==
LOC: EC 15:43 → 3SCARD 19:36
PROVIDERS: ADMIT Internal Medicine; ATTEND Internal Medicine
PROC: 0T9780Z Drainage of Left Ureter with Drainage Device, Via Natural or Artificial Opening Endoscopic (ICD-10-PCS; principal; 2021-12-26 20:30)
DX: A41.9 Sepsis, unspecified organism (principal); N17.0 Acute kidney failure with tubular necrosis; N13.1 Hydronephrosis with ureteral stricture, not elsewhere classified; N13.2 Hydronephrosis with renal and ureteral calculous obstruction; E87.2 Acidosis; R65.20 Severe sepsis without septic shock; B96.20 Unspecified Escherichia coli [E. coli] as the cause of diseases classified elsewhere; R74.01 Elevation of levels of liver transaminase levels; E11.9 Type 2 diabetes mellitus without complications; E66.01 Morbid (severe) obesity due to excess calories; N21.0 Calculus in bladder; Z79.84 Long term (current) use of oral hypoglycemic drugs; Z79.899 Other long term (current) drug therapy; E78.5 Hyperlipidemia, unspecified; Z20.822 Contact with and (suspected) exposure to COVID-19; F41.9 Anxiety disorder, unspecified; I10 Essential (primary) hypertension; I49.3 Ventricular premature depolarization; Z82.3 Family history of stroke; Z83.3 Family history of diabetes mellitus; Z87.442 Personal history of urinary calculi; Z87.891 Personal history of nicotine dependence; R60.9 Edema, unspecified
CPT/HCPCS: 36410; 36415; 71046; 71250; 74176; 76937; 80048; 80053; 81001; 83605; 83735; 85025; 85027; 85610; 85730; 86704; 86706; 87040; 87077; 87086; 87186; 87340; 87635; 93005; 96361; 96365; 96375; 99291

== ENCOUNTER 2022-01-13 07:35 | Day surgery (SDC) | payer OTHER ==
[2022-01-12 10:20] VITALS: BMI 52.7
--- NOTE | 2022-01-12 11:40 | P.GSHP ---
History of Present Illness H&P Date: 01/12/22 61 yo femal e who was recently in the hospital with a distal left stone, uti with sepsis[pyonephrosis]. A stent was placed. Antibiotics were given. She recouperated and she now comes for formal left ureteroscopy with laser lithotripsy and stent removal. - Constitutional Constitutional: Denies chills, Denies fever - EENT Eyes: denies blurred vision, denies pain Ears, nose, mouth and throat: Denies headache, Denies sore throat - Cardiovascular Cardiovascular: Denies chest pain, Denies shortness of breath - Respiratory Respiratory: Denies cough, Denies 7 - Gastrointestinal Gastrointestinal: Denies abdominal pain, Denies diarrhea, Denies nausea, Denies vomiting - Genitourinary (Female) Genitourinary: Denies dysuria, Denies hematuria - Genitourinary (Male) Genitourinary: Denies dysuria, Denies hematuria - Musculoskeletal Musculoskeletal: Denies myalgias - Integumentary Integumentary: Denies pruritus, Denies rash - Neurological Neurological: Denies numbness, Denies weakness - Psychiatric Psychiatric: Denies anxiety, Denies depression - Endocrine Endocrine: Denies fatigue, Denies weight change Past Medical History Past Medical History: Diabetes Mellitus, GERD/Reflux, Hyperlipidemia, Hypertension, Osteoarthritis (OA), Pneumonia Additional Past Medical History / Comment(s): diarrhea on and off, hx IBS, recent adm. for hydroneprosis, kidney stones, UTI & sepsis History of Any Multi-Drug Resistant Organisms: None Reported Past Surgical History: Section, Cholecystectomy Additional Past Surgical History / Comment(s): cystoscopy w/left ureteral stent 12/26/21 Past Anesthesia/Blood Transfusion Reactions: No Reported Reaction Smoking Status: Former smoker - Past Family History Father Family Medical History: CVA/TIA, Deep Vein Thrombosis (DVT) Mother Family Medical History: Dementia, Diabetes Mellitus Medications and Allergies Home Medications Medication Instructions Recorded Confirmed Type Rosuvastatin [Crestor] 10 mg PO DAILY 01/16/19 01/12/22 History metFORMIN HCL ER [Glucophage XR] 500 mg PO PC-SUPPER 05/26/21 01/12/22 History amLODIPine [Norvasc] 5 mg PO DAILY 30 Days #30 tab 12/31/21 01/12/22 Rx Allergies Allergy/AdvReac Type Severity Reaction Status Date / Time Penicillins Allergy Rash/Hives Verified 12/26/21 18:22 Surgical - Exam - General well developed, well nourished, no distress, obese - Eyes normal ocular movement, no icteric - ENT no hearing loss, no congestion - Neck no masses, trachea midline - Respiratory normal respiratory effort, clear to auscultation - Abdomen Abdomen: soft, non tender, no guarding, no rigid, no rebound - Integumentary no rash, no abnormal pigmentation - Neurologic no disoriented, no combative - Psychiatric oriented to time, oriented to person, oriented to place, speech is normal, ace ry intact Results - Imaging Abdominal x-ray: report reviewed, image reviewed CT scan - abdomen: report reviewed, image reviewed CT scan - pelvis: report reviewed, image reviewed Assessment and Plan Assessment: Impression: left ureteral stone with stent Plan: left ureteroscopy with laser lithotripsy and stent removal.
[~2022-01-13 07:35] MED LIST changes: +DEXAMETHASONE SOD PHOSPHATE 4 MG/ML 1 ML VIAL IV ONE; +GENTAMICIN 130 MG in SODIUM CHLORIDE 0.9% 100 ML IVPB PRN; +HYDROmorphone 0.5 MG/0.5 ML SYRINGE IVP PRN; +LIDOCAINE 1% (10MG/ML) FOR IV START INTRADERMA PRN; +ONDANSETRON 4 MG/2 ML VIAL IVP ONE; +SCOPOLAMINE 1 MG/72 HR PATCH TRANSDERM ONE
--- NOTE | 2022-01-13 08:09 | XR ---
EXAMINATION TYPE: XR KUB DATE OF EXAM: 01/13/2022 HISTORY: Pain Comparison: None.Single KUB is submitted for interpretation. Findings: Right renal calculi: None Visualized. Right ureteral calculi: None Visualized. Left renal calculi: None Visualized. Left ureteral calculi: Double pigtail left-sided ureteral stent in place. Pelvic calcifications: Multiple pelvic calcifications may reflect phlebolith formation. Bowel gas pattern is unremarkable. No free air. No mass effects. IMPRESSION: 1. As above
[2022-01-13 08:40] LABS: Glucose,Whole Blood 128 mg/dL (75-99)
[2022-01-13] MEDS ORDERED: fentaNYL (PF) 50 MCG/ML 2 ML AMP ONE (09:32)
[2022-01-13] MEDS ORDERED: SUCCINYLCHOLINE CHLORIDE VIAL 200 MG/10 ML VIAL IV ONE (09:32)
[2022-01-13] MEDS ORDERED: PROPOFOL 10 MG/ML 20 ML VIAL IV ONE (09:32)
[2022-01-13] MEDS ORDERED: KETAMINE 10 MG/ML 20 ML VIAL ONE (09:32)
[2022-01-13] MEDS ORDERED: MIDAZOLAM 2 MG/2 ML VIAL ONE (09:32)
[2022-01-13] MEDS ORDERED: LIDOCAINE 2% INJ 20 MG/ML (2 ML VIAL) ONE (09:32)
--- NOTE | 2022-01-13 10:19 | P.OP ---
Date of Procedure: 01/13/22 Preoperative Diagnosis: left ureteral stone Postoperative Diagnosis: Same Procedure(s) Performed: Cystoscopy, removal double-J catheter left, left ureteroscopy with laser lithotripsy Anesthesia: SOFI Surgeon: Hank Grullon Estimated Blood Loss (ml): 0 Pathology: other (Stone) Condition: stable Disposition: PACU Indications for Procedure: Patient is 61. She had a 6 mm obstructing left ureteral stone with urinary tract infection with sepsis, pyonephrosis. She had a stent placed was treated with antibiotics for stent and stone removal Description of Procedure: Patient brought to the operating suite. She's given general anesthesia. She's placed lithotomy position with sterile prep and drape. Cystoscopy Foroblique lens and 21-Scottish sheath identifies a normal urethra. The bladder mucosa shows catheter edema. The left double-J catheters identified and removed to the urethral meatus. An 035 wires passed up the stent and the stent is removed. Alongside the wires is passed the semirigid ureteroscope. The stone was identified. With the 375 laser probe the stone was broken into tiny fragments. The fragments are flushed out of the ureter. At the end of the procedure the ureter shows no significant edema. There is only sand left. The wire is removed and the ureteroscope removed. The bladder is drained. The stone fragments are collected. The patient awake and returned recovery in good condition. She tolerated procedure well. She'll be discharged home upon recovery and follow in the office in one week.
--- NOTE | 2022-01-13 10:29 | FL ---
Fluoroscopy History: left ureteral stone LT URETERAL STONE. 4 SEC FL TIME. I PIC ON SYN
[2022-01-13] MEDS ORDERED: KETOROLAC 15 MG/ML 1 ML VIAL IVP ONE (10:35)
[2022-01-13 10:36] VITALS: TEMP 98.2
[2022-01-13] MEDS ORDERED: LACTATED RINGERS 1,000 ML IV ONE (11:10)
[2022-01-13 11:48] VITALS: BP 121/78; PULSE 83; RESP 16
== END 2022-01-13 12:00 | disposition home or self-care (01) ==
LOC: OR 07:35
PROVIDERS: ATTEND Urology
DX: N20.1 Calculus of ureter (principal); I10 Essential (primary) hypertension; E11.9 Type 2 diabetes mellitus without complications; K21.9 Gastro-esophageal reflux disease without esophagitis; E78.5 Hyperlipidemia, unspecified; M19.90 Unspecified osteoarthritis, unspecified site; F41.9 Anxiety disorder, unspecified; E66.01 Morbid (severe) obesity due to excess calories; Z68.43 Body mass index [BMI] 50.0-59.9, adult; Z87.01 Personal history of pneumonia (recurrent); Z79.899 Other long term (current) drug therapy; Z79.84 Long term (current) use of oral hypoglycemic drugs; Z88.0 Allergy status to penicillin; Z87.891 Personal history of nicotine dependence; Z98.891 History of uterine scar from previous surgery; Z90.49 Acquired absence of other specified parts of digestive tract; Z82.3 Family history of stroke; Z83.3 Family history of diabetes mellitus; Z81.8 Family history of other mental and behavioral disorders
CPT/HCPCS: 82365; 74018; 52353; C1769; J2250; J0330; J1580; J1100; J2405; J3010; J1885; J2704; J1170; J2001

== ENCOUNTER → 2022-05-13 | Outpatient (CLI) | payer OTHER ==
--- NOTE | 2022-05-13 16:02 | US ---
EXAMINATION TYPE: US kidneys/renal and bladder DATE OF EXAM: 05/13/2022 COMPARISON: None CLINICAL HISTORY: 61-year-old female N18.31 CHRONIC KIDNEY DISEASE, STAGE 3A. Left renal stone December 2021 with sepsis. TECHNIQUE: Multiple sonographic images of the kidneys and bladder are obtained. FINDINGS: EXAM MEASUREMENTS: Right Kidney: 11.5 x 6.0 x 6.1 cm Left Kidney: 11.3 x 4.8 x 5.5 cm Other Sports Official notes: Exam limited by patient body habitus and overlying bowel gas. Right Kidney: No hydronephrosis or masses seen Left Kidney: No hydronephrosis or masses seen However, there is very limited detailed assessment of the kidneys due to large body habitus. Bladder: Partially distended bladder shows no gross abnormality. Bilateral Jets not seen IMPRESSION: Limited detailed assessment of the kidneys due to large patient body habitus. No obvious hydronephros is.
== END | disposition home or self-care (01) ==
LOC: RADUSWWP 12:09
PROVIDERS: ATTEND Internal Medicine Nephrology
DX: N18.31 Chronic kidney disease, stage 3a (principal)
CPT/HCPCS: 76770

== ENCOUNTER → 2023-02-16 | Outpatient (CLI) | payer OTHER ==
--- NOTE | 2023-02-17 08:11 | MM ---
Reason for Exam: Screening (asymptomatic). Last mammogram was performed 1 year(s) and 8 month(s) ago. Patient History: Menarche at age 11. First Full-Term at age 19. Postmenopausal. Patient used Hormonal Contraceptives for 8 years. Risk Values: Lashanda 5 year model risk: 1.2%. NCI Lifetime model risk: 5.5%. Prior Study Comparison: 01/12/2018 Screening Mammogram, [facility]. 11/02/2019 Bilateral Screening Mammogram, [facility]. 06/08/2021 Bilateral Screening Mammogram, [facility]. Tissue Density: The breast tissue is heterogeneously dense. This may lower the sensitivity of mammography. Findings: Analyzed By CAD. There is no suspicious group of microcalcifications or new suspicious mass in either breast. Overall Assessment: Benign, BI-RAD 2 Management: Screening Mammogram of both breasts in 1 year. . Patient should continue monthly self-breast exams. A clinical breast exam by your physician is recommended on an annual basis. This exam should not preclude additional follow-up of suspicious palpable abnormalities. Note on Lashanda scores and lifetime risk: 1. A Lashanda score greater than 3% is considered moderate risk. If this is the case, consider specialist referral to assess eligibility for a risk reducing agent. 2. If overall lifetime risk for the development of breast cancer is 20% or higher, the patient may qualify for future screening with alternating mammogram and breast MRI. Electronically signed and approved by: Jamshid Garcia M.D. Radiologis
== END | disposition home or self-care (01) ==
LOC: RADMAMWWP 09:18
PROVIDERS: ATTEND Family Medicine
DX: Z12.31 Encounter for screening mammogram for malignant neoplasm of breast (principal); Z78.0 Asymptomatic menopausal state
CPT/HCPCS: 77067

== ENCOUNTER → 2024-02-21 | Outpatient (CLI) | payer OTHER ==
--- NOTE | 2024-02-21 16:15 | MM ---
Reason for Exam: Screening (asymptomatic). Last screening mammogram was performed 12 month(s) ago. Patient History: Menarche at age 11. First Full-Term at age 19. Postmenopausal. Patient used Hormonal Contraceptives for 8 years. Risk Values: Lashanda 5 year model risk: 1.2%. NCI Lifetime model risk: 5.3%. Prior Study Comparison: 11/02/2019 Bilateral Screening Mammogram, [facility]. 06/08/2021 Bilateral Screening Mammogram, [facility]. 02/16/2023 Bilateral MG screening mammo w CAD, [facility]. Tissue Density: There are scattered areas of fibroglandular density. Findings: Analyzed By CAD. The pattern is symmetrical. Pattern is stable. Benign spherical and round calcifications are scattered bilaterally No suspicious groups of microcalcifications, spiculated or lobular masses, architectural distortion or other secondary signs of malignancy are mammographically apparent. Overall Assessment: Benign, BI-RAD 2 Management: Screening Mammogram of both breasts in 1 year. A negative mammogram report should not preclude additional follow up of suspicious palpable abnormalities. Patient should continue monthly self breast exam. A clinical breast exam by your physician is recommended on an annual basis and results should be correlated with mammographic findings. Note on Lashanda scores and lifetime risk: 1. A Lashanda score greater than 3% is considered moderate risk. If this is the case, consider specialist referral to assess eligibility for a risk reducing agent. 2. If overall lifetime risk for the development of breast cancer is 20% or higher, the patient may qualify for future screening with alternating mammogram and breast MRI. Electronically signed and approved by: Tyler Ivey D.O. Radiologis
== END | disposition home or self-care (01) ==
LOC: RADMAMWWP 09:22
PROVIDERS: ATTEND Family Medicine
DX: Z12.31 Encounter for screening mammogram for malignant neoplasm of breast (principal); Z78.0 Asymptomatic menopausal state
CPT/HCPCS: 77063; 77067

== ENCOUNTER → 2024-06-07 | Outpatient (CLI) | payer OTHER ==
--- NOTE | 2024-06-07 12:14 | US ---
EXAMINATION TYPE: US kidneys/renal and bladder DATE OF EXAM: 06/07/2024 COMPARISON: 05/13/22 CLINICAL INDICATION: Female, 63 years old with history of N18.2 CKD STAGE 2; CKD TECHNIQUE: Grayscale and color Doppler imaging of the bilateral kidneys and urinary bladder: EXAM MEASUREMENTS: Right Kidney: 11.7 x 5.4 x 4.7 cm Left Kidney: 11.7 x 4.6 x 4.8 cm Right Kidney: No hydronephrosis or masses seen Left Kidney: No hydronephrosis or masses seen Bladder: wnl Bilateral Jets seen: No Renal cortical thickness and echogenicity maintained. IMPRESSION: No acute process. [facility], , 06/07/2024 12:11 PM
== END | disposition home or self-care (01) ==
LOC: RADUSWWP 11:21
PROVIDERS: ATTEND Internal Medicine
DX: N18.2 Chronic kidney disease, stage 2 (mild) (principal)
CPT/HCPCS: 76770